=== PATIENT | female | born 1935 | race Caucasian/White ===

== ENCOUNTER 2016-09-26 05:20 | Inpatient (IN) | payer MEDICARE, MEDICAID ==
[2016-09-26] MEDS ORDERED: Albuterol/Ipratropium 3.0-0.5 MG/3 ML Neb Soln NEB ONE (05:35)
[2016-09-26] MEDS ORDERED: Albuterol/Ipratropium 3.0-0.5 MG/3 ML Neb Soln ONE (05:35)
[2016-09-26] MEDS ORDERED: Acetaminophen 325 MG Supp ONE (06:02)
[2016-09-26] MEDS ORDERED: Acetaminophen 325 MG Supp RECTAL ONE (06:02)
[2016-09-26] MEDS ORDERED: Levofloxacin/Dextrose 5%-Water 750 MG in Premix Bag 1 BAG IV ONE (06:20)
--- NOTE | 2016-09-26 06:58 | EDM.PDOC ---
ED HPI GENERAL MEDICAL PROBLEM - General Chief Complaint: Respiratory Problem Stated Complaint: SHORT OF BREATH Time Seen by Provider: 09/26/16 06:51 - History of Present Illness INITIAL COMMENTS - FREE TEXT/NARRATIVE: HISTORY AND PHYSICAL: History of present illness: Patient is a 81-year-old white female who presents from the half-way with fever shortness of breath cough and an advanced directive of DO NOT RESUSCITATE was no vomiting no diarrhea no chest pain patient's extremely poor story extensive past medical history. Patient was given albuterol ipratropium nebulizer prior to arrival Review of systems: As per history of present illness and below otherwise all systems reviewed and negative. Past medical history: As per history of present illness and as reviewed below otherwise noncontributory. Surgical history: As per history of present illness and as reviewed below otherwise noncontributory. Social history: No reported history of drug or alcohol abuse. Family history: As per history of present illness and as reviewed below otherwise noncontributory. Physical exam: HEENT: Atraumatic, normocephalic, pupils reactive, negative for conjunctival pallor or scleral icterus, mucous membranes moist, throat clear, neck supple, nontender, trachea midline. Lungs: Coarse breath sounds bilaterally scattered rhonchi wheezing and crackles , breath sounds equal bilaterally, chest nontender. Heart: S1S2, regular, negative for clicks, rubs, or JVD. Abdomen: Soft, nondistended, nontender. Negative for masses or hepatosplenomegaly. Negative for costovertebral tenderness. Pelvis: Stable nontender. Genitourinary: Deferred. Rectal: Deferred. Extremities: Atraumatic, negative for cords or calf pain. Neurovascular unremarkable. Neuro: Awake, follows commands moves all extremities limited grossly nonfocal exam Diagnostics: CBC CMP troponin BNP PT/INR lactic acid blood culture x2 chest x-ray UA urine culture and sensitivity Therapeutics: IV O2 monitor Levaquin 750 mg IV vancomycin 1 g IV Impression: #1 sepsis #2 pneumonia Definitive disposition and diagnosis as appropriate pending reevaluation and review of above. 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 - Related Data Allergies Allergy/AdvReac Type Severity Reaction Status Date / Time baclofen Allergy Other Verified 09/26/16 05:43 celecoxib [From Celebrex] Allergy Other Verified 09/26/16 05:43 propoxyphene Allergy Other Verified 09/26/16 05:43 sulfamethoxazole Allergy Other Verified 09/26/16 05:43 [From ] trimethoprim [From ] Allergy Other Verified 09/26/16 05:43 Home Meds: Home Meds Calcium Carbonate/Vitamin D3 [Calcium 600 + Vit D 400 Softgl] 1 cap PO BID 03/29 [History] Cholestyramine/Aspartame [Questran Light Powder] 4 gm PO DAILY 03/29/16 [History ] Cyanocobalamin (Vitamin B12) [Vitamin B12] 1,000 mcg PO DAILY 03/29/16 [History] Donepezil HCl [Aricept] 10 mg PO BEDTIME 03/29/16 [History] FLUoxetine [PROzac] 40 mg PO DAILY 03/29/16 [History] Folic Acid 1 mg PO BEDTIME 03/29/16 [History] Hydrocortisone [Hydrocortisone 2.5% Crm] 1 dose TD DAILY PRN 03/29/16 [History] Ibuprofen [Motrin] 200 mg PO Q6H PRN 03/29/16 [History] Levothyroxine [Synthroid] 50 mcg PO DAILY 03/29/16 [History] Lisinopril 20 mg PO DAILY 03/29/16 [History] Loratadine 10 mg PO DAILY PRN 03/29/16 [History] Mirtazapine [Remeron] 45 mg PO BEDTIME 03/29/16 [History] Multivitamin [Multivitamins] 1 cap PO DAILY 03/29/16 [History] Prednisone [IJD: predniSONE] 20 mg PO DAILY 03/29/16 [History] amLODIPine Besylate [Norvasc] 2.5 mg PO DAILY 03/29/16 [History] fentaNYL [Fentanyl] 1 patch TD Q72H 03/29/16 [History] traMADol [Ultram] 1 tab PO TID 03/29/16 [History] Albuterol Sulfate 2.5 mg INH Q6H PRN 09/26/16 [History] Past Medical History HEENT History: Reports: Impaired Vision Cardiovascular History: Reports: High Cholesterol, Hypertension Other Cardiovascular History: raynauds Gastrointestinal History: Reports: GERD 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: Musculoskeletal History: Reports: Arthritis, Fibromyalgia, Other (See Below) Other Musculoskeletal History: polymyalgia rheumatica, MS Neurological History: Reports: MS Psychiatric History: Reports: Dementia, Depression Endocrine/Metabolic History: Reports: Hypothyroidism Social & Family History - Family History Family Medical History: Noncontributory - Tobacco Use Smoking Status *Q: Unknown Ever Smoked - Caffeine Use Caffeine Use: Reports: None - Recreational Drug Use Recreational Drug Use: No ED ROS GENERAL - Review of Systems Review Of Systems: ROS reveals no pertinent complaints other than HPI. ED EXAM, GENERAL - Physical Exam Exam: See Below (See dictation) Course - Vital Signs Last Recorded V/S: Last Vital Signs Temp 36.3 C 09/26/16 06:49 Pulse 78 09/26/16 06:49 Resp 28 H 09/26/16 06:49 BP 120/65 09/26/16 06:49 Pulse Ox 92 L 09/26/16 06:49 - Orders/Labs/Meds Orders: Active Orders 24 hr Category Date Time Status EKG Documentation Completion [RC] STAT Care 09/26/16 05:35 Active RT Aerosol Therapy [RC] ASDIRECTED Care 09/26/16 05:35 Active Chest 1V Frontal [CR] Stat Exams 09/26/16 05:36 Taken CULTURE BLOOD [BC] Stat Lab 09/26/16 05:35 Received CULTURE BLOOD [BC] Stat Lab 09/26/16 05:48 Received Levofloxacin/Dextrose 5%-Water [Levaquin in D5W 750 MG/ Med 09/26/16 06:20 Active 150 ML] 750 mg Premix Bag 1 bag IV ONETIME Vancomycin [Vancocin] 1 gm Med 09/26/16 06:52 Ordered Sodium Chloride 0.9% [Normal Saline] 250 ml IV ONETIME Blood Culture x2 Reflex Set [OM.PC] Stat Oth 09/26/16 05:36 Ordered Medication Orders Levofloxacin/Dextrose 750 mg/ (Premix) 150 mls @ 100 mls/hr IV ONETIME ONE Stop: 09/26/16 07:49 Last Admin: 09/26/16 06:27 Dose: 100 mls/hr Labs: Laboratory Tests 09/26/16 09/26/16 09/26/16 Range/Units 05:25 05:25 05:25 WBC 17.83 H (4.0-11.0) K/uL RBC 4.61 (4.30-5.90) M/uL Hgb 14.0 (12.0-16.0) g/dL Hct 43.8 (36.0-46.0) % MCV 95.0 (80.0-98.0) fL MCH 30.4 (27.0-32.0) pg MCHC 32.0 (31.0-37.0) g/dL RDW Std Deviation 54.7 (28.0-62.0) fl RDW Coeff of Maricel 16 H (11.0-15.0) % Plt Count 261 (150-400) K/uL MPV 9.80 (7.40-12.00) fL Add Manual Diff YES Neutrophils % (Manual) 86 H (48.0-80.0) % Band Neutrophils % 3 % Lymphocytes % (Manual) 6 L (16.0-40.0) % Monocytes % (Manual) 4 (0.0-15.0) % Basophils % (Manual) 1 (0.0-1.5) % Nucleated RBC % 0.0 /100WBC Absolute Seg Neuts 15.3 Band Neutrophils # 0.5 Lymphocytes # (Manual) 1.1 Monocytes # (Manual) 0.7 Basophils # (Manual) 0 Nucleated RBCs # 0 K/uL INR (0.86-1.11) ABG pH (7.35-7.45) ABG pCO2 (35-45) mmHG ABG pO2 (75-100) mmHG ABG HCO3 (22-26) mEq/L ABG Total CO2 ABG Base Excess (-2.0-2.0) Lactate 3.6 H (0.20-2.00) mmol/L Sodium 140 (136-146) mmol/L Potassium 3.7 (3.5-5.1) mmol/L Chloride 106 (98-110) mmol/L Carbon Dioxide 20 L (21-31) mmol/L BUN 22 (6.0-23.0) mg/dL Creatinine 1.1 (0.6-1.5) mg/dL Est Cr Clr Drug Dosing 31.72 mL/min Estimated GFR (MDRD) 47.7 ml/min Glucose 163 H (60-110) mg/dL Calcium 9.7 (8.8-10.8) mg/dL Total Bilirubin 0.5 (0.1-1.5) mg/dL AST 28 (5-40) IU/L ALT 35 (8-54) IU/L Alkaline Phosphatase 85 (40-150) B-Natriuretic Peptide (<100) PG/ML Total Protein 7.3 (6.0-8.0) g/dL Albumin 4.3 (3.4-4.8) g/dL Globulin 3.0 (2.0-3.5) g/dL Albumin/Globulin Ratio 1.4 (1.3-2.8) Urine Color Urine Appearance Urine pH (5.0-8.0) Ur Specific [place] (1.001-1.035) Urine Protein (NEGATIVE) mg/dL Urine Glucose (UA) (NEGATIVE) mg/dL Urine Ketones (NEGATIVE) mg/dL Urine Occult Blood (NEGATIVE) Urine Nitrite (NEGATIVE) Urine Bilirubin (NEGATIVE) Urine Urobilinogen (<2.0) EU/dL Ur Leukocyte Esterase (NEGATIVE) Urine RBC (0-2/HPF) Urine WBC (0-5/HPF) Ur Epithelial Cells (NONE-FEW) Amorphous Sediment (NEGATIVE) Urine Bacteria (NEGATIVE) 09/26/16 09/26/16 09/26/16 Range/Units 05:25 05:25 06:05 WBC (4.0-11.0) K/uL RBC (4.30-5.90) M/uL Hgb (12.0-16.0) g/dL Hct (36.0-46.0) % MCV (80.0-98.0) fL MCH (27.0-32.0) pg MCHC (31.0-37.0) g/dL RDW Std Deviation (28.0-62.0) fl RDW Coeff of [place] (11.0-15.0) % Plt Count (150-400) K/uL MPV (7.40-12.00) fL Add Manual Diff Neutrophils % (Manual) (48.0-80.0) % Band Neutrophils % % Lymphocytes % (Manual) (16.0-40.0) % Monocytes % (Manual) (0.0-15.0) % Basophils % (Manual) (0.0-1.5) % Nucleated RBC % /100WBC Absolute Seg Neuts Band Neutrophils # Lymphocytes # (Manual) Monocytes # (Manual) Basophils # (Manual) Nucleated RBCs # K/uL INR 0.99 (0.86-1.11) ABG pH (7.35-7.45) ABG pCO2 (35-45) mmHG ABG pO2 (75-100) mmHG ABG HCO3 (22-26) mEq/L ABG Total CO2 ABG Base Excess (-2.0-2.0) Lactate (0.20-2.00) mmol/L Sodium (136-146) mmol/L Potassium (3.5-5.1) mmol/L Chloride (98-110) mmol/L Carbon Dioxide (21-31) mmol/L BUN (6.0-23.0) mg/dL Creatinine (0.6-1.5) mg/dL Est Cr Clr Drug Dosing mL/min Estimated GFR (MDRD) ml/min Glucose (60-110) mg/dL Calcium (8.8-10.8) mg/dL Total Bilirubin (0.1-1.5) mg/dL AST (5-40) IU/L ALT (8-54) IU/L Alkaline Phosphatase (40-150) B-Natriuretic Peptide 117 H (<100) PG/ML Total Protein (6.0-8.0) g/dL Albumin (3.4-4.8) g/dL Globulin (2.0-3.5) g/dL Albumin/Globulin Ratio (1.3-2.8) Urine Color YELLOW Urine Appearance CLEAR Urine pH 5.5 (5.0-8.0) Ur Specific [place] >= 1.030 (1.001-1.035) Urine Protein 30 (NEGATIVE) mg/dL Urine Glucose (UA) NEGATIVE (NEGATIVE) mg/dL Urine Ketones NEGATIVE (NEGATIVE) mg/dL Urine Occult Blood MODERATE (NEGATIVE) Urine Nitrite POSITIVE H (NEGATIVE) Urine Bilirubin NEGATIVE (NEGATIVE) Urine Urobilinogen 0.2 (<2.0) EU/dL Ur Leukocyte Esterase SMALL (NEGATIVE) Urine RBC 6-10 (0-2/HPF) Urine WBC 20-30 (0-5/HPF) Ur Epithelial Cells FEW (NONE-FEW) Amorphous Sediment LIGHT (NEGATIVE) Urine Bacteria 2+ H (NEGATIVE) 09/26/16 Range/Units 06:30 WBC (4.0-11.0) K/uL RBC (4.30-5.90) M/uL Hgb (12.0-16.0) g/dL Hct (36.0-46.0) % MCV (80.0-98.0) fL MCH (27.0-32.0) pg MCHC (31.0-37.0) g/dL RDW Std Deviation (28.0-62.0) fl RDW Coeff of [place] (11.0-15.0) % Plt Count (150-400) K/uL MPV (7.40-12.00) fL Add Manual Diff Neutrophils % (Manual) (48.0-80.0) % Band Neutrophils % % Lymphocytes % (Manual) (16.0-40.0) % Monocytes % (Manual) (0.0-15.0) % Basophils % (Manual) (0.0-1.5) % Nucleated RBC % /100WBC Absolute Seg Neuts Band Neutrophils # Lymphocytes # (Manual) Monocytes # (Manual) Basophils # (Manual) Nucleated RBCs # K/uL INR (0.86-1.11) ABG pH 7.410 (7.35-7.45) ABG pCO2 35 (35-45) mmHG ABG pO2 60 L (75-100) mmHG ABG HCO3 22 (22-26) mEq/L ABG Total CO2 19.9 ABG Base Excess -2.2 L (-2.0-2.0) Lactate (0.20-2.00) mmol/L Sodium (136-146) mmol/L Potassium (3.5-5.1) mmol/L Chloride (98-110) mmol/L Carbon Dioxide (21-31) mmol/L BUN (6.0-23.0) mg/dL Creatinine (0.6-1.5) mg/dL Est Cr Clr Drug Dosing mL/min Estimated GFR (MDRD) ml/min Glucose (60-110) mg/dL Calcium (8.8-10.8) mg/dL Total Bilirubin (0.1-1.5) mg/dL AST (5-40) IU/L ALT (8-54) IU/L Alkaline Phosphatase (40-150) B-Natriuretic Peptide (<100) PG/ML Total Protein (6.0-8.0) g/dL Albumin (3.4-4.8) g/dL Globulin (2.0-3.5) g/dL Albumin/Globulin Ratio (1.3-2.8) Urine Color Urine Appearance Urine pH (5.0-8.0) Ur Specific [place] (1.001-1.035) Urine Protein (NEGATIVE) mg/dL Urine Glucose (UA) (NEGATIVE) mg/dL Urine Ketones (NEGATIVE) mg/dL Urine Occult Blood (NEGATIVE) Urine Nitrite (NEGATIVE) Urine Bilirubin (NEGATIVE) Urine Urobilinogen (<2.0) EU/dL Ur Leukocyte Esterase (NEGATIVE) Urine RBC (0-2/HPF) Urine WBC (0-5/HPF) Ur Epithelial Cells (NONE-FEW) Amorphous Sediment (NEGATIVE) Urine Bacteria (NEGATIVE) Meds: Medications Generic Name Dose Route Start Last Admin Trade Name Freq PRN Reason Stop Dose Admin Levofloxacin/Dextrose 750 mg/ 150 mls @ 100 mls/hr 09/26/16 06:20 09/26/16 06 :27 Premix IV 09/26/16 07:49 100 mls/hr ONETIME ONE Administration Discontinued Medications Generic Name Dose Route Start Last Admin Trade Name Freq PRN Reason Stop Dose Admin Acetaminophen Confirm 09/26/16 06:02 09/26/16 06:05 Tylenol Administered 09/26/16 06:03 325 mg Dose Administration 325 mg .ROUTE .STK-MED ONE Acetaminophen 325 mg 09/26/16 06:02 09/26/16 06:24 Tylenol RECTAL 09/26/16 06:03 Not Given NOW ONE Albuterol/Ipratropium 3 ml 09/26/16 05:35 09/26/16 05:35 Duoneb 3.0-0.5 Mg/3 Ml NEB 09/26/16 05:36 3 ml ONETIME ONE Administration Albuterol/Ipratropium Confirm 09/26/16 05:35 09/26/16 06:15 Duoneb 3.0-0.5 Mg/3 Ml Administered 09/26/16 05:36 Not Given Dose 3 ml .ROUTE .STK-MED ONE Departure - Departure Time of Disposition: 06:57 Disposition: Admitted As Inpatient 66 Condition: serious Clinical Impression: Sepsis, Pneumonia, UTI (urinary tract infection) - Discharge Information Forms: ED Department Discharge - My Orders Last 24 Hours: My Active Orders 09/26/16 05:35 EKG Documentation Completion [RC] STAT RT Aerosol Therapy [RC] ASDIRECTED CULTURE BLOOD [BC] Stat 09/26/16 05:36 Chest 1V Frontal [CR] Stat Blood Culture x2 Reflex Set [OM.PC] Stat 09/26/16 05:48 CULTURE BLOOD [BC] Stat 09/26/16 06:20 Levofloxacin/Dextrose 5%-Water [Levaquin in D5W 750 MG/150 ML] 750 mg Premix Bag 1 bag IV ONETIME 09/26/16 06:52 Vancomycin [Vancocin] 1 gm Sodium Chloride 0.9% [Normal Saline] 250 ml IV ONETIME - Assessment/Plan Last 24 Hours: My Active Orders 09/26/16 05:35 EKG Documentation Completion [RC] STAT RT Aerosol Therapy [RC] ASDIRECTED CULTURE BLOOD [BC] Stat 09/26/16 05:36 Chest 1V Frontal [CR] Stat Blood Culture x2 Reflex Set [OM.PC] Stat 09/26/16 05:48 CULTURE BLOOD [BC] Stat 09/26/16 06:20 Levofloxacin/Dextrose 5%-Water [Levaquin in D5W 750 MG/150 ML] 750 mg Premix Bag 1 bag IV ONETIME 09/26/16 06:52 Vancomycin [Vancocin] 1 gm Sodium Chloride 0.9% [Normal Saline] 250 ml IV ONETIME
[2016-09-26] MEDS ORDERED: Sodium Chloride 0.9% 1,000 ML IV SCH ×2 (07:15→08:00)
[2016-09-26] MEDS: Sodium Chloride 0.9% 1,000 ML IV SCH ×2 (08:33→17:07)
[2016-09-26] MEDS: Heparin Sodium 5,000 Units/ML Vial SUBCUT SCH ×2 (08:39→14:59)
[2016-09-26] MEDS: Piperacillin/Tazobactam 3.375 GM in Sodium Chloride 0.9% 50 ML IV SCH ×3 (08:39→20:49)
--- NOTE | 2016-09-26 10:03 | PCM.HP ---
H&P History of Present Illness - General Date of Service: 09/26/16 Admit Problem/Dx: Admission Diagnosis/Problem Admission Diagnosis/Problem Pneumonia Source of Information: Old Records History Limitations: Reports: Altered Mental Status - History of Present Illness Initial Comments - Free Text/Narative: The patient is an 81-year-old lady who is presented to the emergency department out of concern for pneumonia, urinary tract infection and alteration in her mental status. Information has been obtained primarily from the emergency room physician and previous records. The patient is nonverbal and does not follow commands. She is not able to participate in a meaningful way with her history and physical. Apparently the patient had been ill for the past several days and has gotten worse to the point that she was admitted to the emergency department. Onset of Symptoms: Reports: Unknown/Unsure Location: Reports: Generalized Improves with: Reports: None Worsens with: Reports: None Associated Symptoms: Reports: No Other Symptoms - Related Data Allergies/Adverse Reactions: Allergies Allergy/AdvReac Type Severity Reaction Status Date / Time baclofen Allergy Other Verified 09/26/16 05:43 celecoxib [From Celebrex] Allergy Other Verified 09/26/16 05:43 propoxyphene Allergy Other Verified 09/26/16 05:43 sulfamethoxazole Allergy Other Verified 09/26/16 05:43 [From Septra] trimethoprim [From Septra] Allergy Other Verified 09/26/16 05:43 Home Medications: Home Meds Calcium Carbonate/Vitamin D3 [Calcium 600 + Vit D 400 Softgl] 1 cap PO BID 03/29 [History] Cholestyramine/Aspartame [Questran Light Powder] 4 gm PO DAILY 03/29/16 [History ] Cyanocobalamin (Vitamin B12) [Vitamin B12] 1,000 mcg PO DAILY 03/29/16 [History] Donepezil HCl [Aricept] 10 mg PO BEDTIME 03/29/16 [History] FLUoxetine [PROzac] 40 mg PO DAILY 03/29/16 [History] Folic Acid 1 mg PO BEDTIME 03/29/16 [History] Hydrocortisone [Hydrocortisone 2.5% Crm] 1 dose TD DAILY PRN 03/29/16 [History] Ibuprofen [Motrin] 200 mg PO Q6H PRN 03/29/16 [History] Levothyroxine [Synthroid] 50 mcg PO DAILY 03/29/16 [History] Lisinopril 20 mg PO DAILY 03/29/16 [History] Loratadine 10 mg PO DAILY PRN 03/29/16 [History] Mirtazapine [Remeron] 45 mg PO BEDTIME 03/29/16 [History] Multivitamin [Multivitamins] 1 cap PO DAILY 03/29/16 [History] Prednisone [IJD: predniSONE] 20 mg PO DAILY 03/29/16 [History] amLODIPine Besylate [Norvasc] 2.5 mg PO DAILY 03/29/16 [History] fentaNYL [Fentanyl] 1 patch TD Q72H 03/29/16 [History] traMADol [Ultram] 1 tab PO TID 03/29/16 [History] Albuterol Sulfate 2.5 mg INH Q6H PRN 09/26/16 [History] Past Medical History HEENT History: Reports: Impaired Vision Cardiovascular History: Reports: High Cholesterol, Hypertension Other Cardiovascular History: raynauds Gastrointestinal History: Reports: GERD Genitourinary History: Reports: UTI, 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: Musculoskeletal History: Reports: Arthritis, Fibromyalgia, Other (See Below) Other Musculoskeletal History: polymyalgia rheumatica, MS Neurological History: Reports: MS Psychiatric History: Reports: Dementia, Depression Endocrine/Metabolic History: Reports: Hypothyroidism Social & Family History - Family History Family Medical History: Noncontributory - Tobacco Use Smoking Status *Q: Never Smoker - Caffeine Use Caffeine Use: Reports: Coffee - Recreational Drug Use Recreational Drug Use: No - Living Situation & Occupation Living situation: Reports: Extended Care Facility H&P Review of Systems - Review of Systems: Review Of Systems: Unable To Obtain Exam - Exam Exam: See Below - Vital Signs Vital Signs: Last Vital Signs Temp 36.3 C 09/26/16 07:45 Pulse 111 H 09/26/16 08:25 Resp 16 09/26/16 08:25 BP 110/64 09/26/16 08:25 Pulse Ox 92 L 09/26/16 08:25 Weight: 70.8 kg - Exam Quality Assessment: No: Supplemental Oxygen General: Cooperative. No: Alert, Oriented HEENT: Conjunctiva Clear, EACs Clear. No: Mucosa Moist & [place] (oropharynx dry) Neck: Supple, Trachea Midline Lungs: Rales (bi-basilar) Cardiovascular: Tachycardia Abdomen: Soft (no reaction), Hypoactive Bowel Sounds Back Exam: Decreased Range of Motion (mobility impaired) Extremities: Normal Inspection Skin: Warm Neurological: No: Normal Gait Neuro Extensive - Mental Status: No: Alert (nonverbal), Oriented x3, Nl Response to Commands - Patient Data Lab Results last 24 hrs: Laboratory Results - last 24 hr 09/26/16 Range/Units 09:43 Lactate 6.1 H (0.20-2.00) mmol/L Result Diagrams: 09/26/16 05:25 09/26/16 05:25 *Q Meaningful Use (ADM) - VTE *Q VTE Criteria *Q: VTE Pharmacological Contraindications *Q: Cerebral Hemorrhag Infarc - VTE Risk Assess *Q Each Risk Factor Represents 1 Point: Sepsis, Less than 1 Month Total Score 1 Point Risk Factors: 1 Each Risk Factor Represents 3 Points: Age 75 Years or Greater Total Score 3 Point Risk Factors: 3 - Stroke *Q Stroke Criteria *Q: - AMI *Q AMI Criteria *Q: - Problem List (1) Sepsis SNOMED Code(s): 49405137 ICD Code: A41.9 - SEPSIS, UNSPECIFIED ORGANISM Status: Acute Priority: High Current Visit: Yes Problem Details: likely urine source of sepsis Qualifiers: Sepsis type: sepsis due to unspecified organism Qualified Code(s): A41.9 - Sepsis, unspecified organism (2) Lactic acid acidosis SNOMED Code(s): 15830653 ICD Code: E87.2 - ACIDOSIS Status: Acute Priority: High Current Visit: Yes (3) Leukocytosis (leucocytosis) SNOMED Code(s): 387935418, 426258916 ICD Code: D72.829 - ELEVATED WHITE BLOOD CELL COUNT, UNSPECIFIED Status: Acute Priority: High Current Visit: Yes (4) Tachycardia SNOMED Code(s): 9303952 ICD Code: R00.0 - TACHYCARDIA, UNSPECIFIED Status: Acute Priority: High Current Visit: Yes (5) Mobility impaired SNOMED Code(s): 88937061 ICD Code: Z74.09 - OTHER REDUCED MOBILITY Status: Acute Priority: High Current Visit: Yes (6) Multiple sclerosis SNOMED Code(s): 60138216 ICD Code: G35 - MULTIPLE SCLEROSIS Status: Acute Current Visit: Yes (7) Altered mental status, unspecified SNOMED Code(s): 690732817 ICD Code: R41.82 - ALTERED MENTAL STATUS, UNSPECIFIED Status: Chronic Priority: Medium Current Visit: Yes (8) UTI (urinary tract infection) SNOMED Code(s): 22742173 ICD Code: N39.0 - URINARY TRACT INFECTION, SITE NOT SPECIFIED Status: Acute Priority: High Current Visit: Yes Qualifiers: Encounter type: initial encounter Problem List Initiated/Reviewed/Updated: Yes Orders Last 24hrs: Active Orders 24 hr Category Date Time Status Bedrest Bedside Commode [RC] ASDIRECTED Care 09/26/16 07:45 Active Oxygen Therapy [RC] PRN Care 09/26/16 07:45 Active Urinary Catheter Assessment [RC] ASDIRECTED Care 09/26/16 07:45 Active VTE/DVT Education [RC] PER UNIT ROUTINE Care 09/26/16 07:45 Active Vital Signs [RC] Q4H Care 09/26/16 07:45 Active Mechanical Soft Diet [DIET] Diet 09/26/16 Lunch Active CULTURE URINE [RM] Routine Lab 09/26/16 06:05 Received LACTIC ACID,WHOLE BLOOD [BG] Routine Lab 09/26/16 15:30 Ordered Heparin Sodium Med 09/26/16 07:45 Active 5,000 units SUBCUT Q8H Piperacillin/Tazobactam [Piperacil-Tazobact] 3.375 gm Med 09/26/16 08:00 Active Sodium Chloride 0.9% [Normal Saline] 50 ml IV Q6H Sodium Chloride 0.9% [Normal Saline] 1,000 ml Med 09/26/16 07:15 Active IV ASDIRECTED Sodium Chloride 0.9% [Normal Saline] 1,000 ml Med 09/26/16 07:45 Active IV ASDIRECTED Resuscitation Status Routine Resus Stat 09/26/16 07:45 Ordered Medication Orders Heparin Sodium (Porcine) (Heparin Sodium) 5,000 units SUBCUT Q8H [facility] Last Admin: 09/26/16 08:39 Dose: 5,000 units Sodium Chloride (Normal Saline) 1,000 mls @ 999 mls/hr IV ASDIRECTED [facility] Last Admin: 09/26/16 07:45 Dose: 999 mls/hr Piperacillin Sod/Tazobactam (Sod 3.375 gm/ Sodium Chloride) 50 mls @ 100 mls/ hr IV Q6H [facility] Last Admin: 09/26/16 08:39 Dose: 100 mls/hr Sodium Chloride (Normal Saline) 1,000 mls @ 100 mls/hr IV ASDIRECTED [facility] Last Admin: 09/26/16 08:33 Dose: 100 mls/hr Assessment/Plan Comment:: The patient is an 81-year-old lady who has been admitted as an inpatient primarily for sepsis. She has a market elevation of her lactic acid along with leukocytosis and tachycardia. The [facility] and she does have alteration in her mental status. I believe this is likely urinary source. The patient had been dosed with Levaquin in the emergency department and also she has been started on Zosyn. The patient will have aggressive IV fluid resuscitation at the rate of 125 mL per hour. The patient is also in a DO NOT RESUSCITATE/DO NOT INTUBATE category but she will be treated for her likely urosepsis. The patient also has significantly reduced mobility issues secondary to her multiple sclerosis. She was kept on Lovenox for DVT prophylaxis. The patient will also be kept on her regular diet as tolerated depending upon the patient's mental status. I've also ordered a comprehensive metabolic panel and CBC for the morning. I've also ordered a magnesium and phosphorus. The patient will be placed on sepsis protocol along with repeat lactic acids every 6 hours. The patient's prognosis is guarded.
[2016-09-26] MEDS: Morphine 2 MG/ML Syringe IVPUSH PRN ×3 (13:03→20:49)
[2016-09-26] MEDS ORDERED: Non-Formulary Medication 1 Each (Fentanyl [Fentanyl] 12 MCG) TD SCH (13:45)
--- NOTE | 2016-09-26 14:52 | CR ---
EXAM DATE: 09/26/16 PATIENT'S AGE: 81 Patient: AWA CONTRERAS Facility: [place], [place] Site . Site : 1935 Study: XRay Chest [id number] 5:56:50 AM Ordering Physician: Doctor Zamora Final Report: INDICATION: sob TECHNIQUE: Chest 1 view. COMPARISON: 03/29/16 FINDINGS: Cardiovascular and mediastinum: Heart size and vasculature are normal in caliber and appearance. Mediastinum is within normal limits. Lungs and pleural space: Lungs are clear. No sign of infiltrate or mass. No sign of pleural effusion. No pneumothorax. Bones and soft tissues: No significant findings. IMPRESSION: Unremarkable chest. Dictated by: Vasile Ugarte MD @ 09/26/2016 06:00:18 (Electronic Signature) Report Signed by Proxy. ELYSSA
[2016-09-26] MEDS: Albuterol/Ipratropium 3.0-0.5 MG/3 ML Neb Soln NEB PRN ×2 (17:31→20:49)
[2016-09-26] MEDS: Folic Acid 1 MG Tab PO SCH (20:48)
[2016-09-26] MEDS: Mirtazapine 15 MG Tab PO SCH (20:48)
[2016-09-26] MEDS: Donepezil 10 MG Tab PO SCH (20:49)
[2016-09-27] MEDS: Heparin Sodium 5,000 Units/ML Vial SUBCUT SCH ×4 (00:23→23:42)
[2016-09-27] MEDS: Albuterol/Ipratropium 3.0-0.5 MG/3 ML Neb Soln NEB PRN ×2 (01:35→05:48)
[2016-09-27] MEDS: Piperacillin/Tazobactam 3.375 GM in Sodium Chloride 0.9% 50 ML IV SCH ×4 (01:35→19:58)
[2016-09-27] MEDS: Morphine 2 MG/ML Syringe IVPUSH PRN ×4 (01:36→13:34)
[2016-09-27] MEDS: Sodium Chloride 0.9% 1,000 ML IV SCH (01:37)
[2016-09-27] MEDS: fentaNYL 12 MCG/HR Transdermal Patch TRDERM SCH (04:38)
[2016-09-27 04:58] LABS: CHLORIDE,CL 114 mmol/L (98-110); SODIUM,NA 144 mmol/L (136-146)
[2016-09-27] MEDS: predniSONE 20 MG Tab PO SCH (08:08)
[2016-09-27] MEDS: Levothyroxine 50 MCG Tab PO SCH (08:09)
[2016-09-27] MEDS: FLUoxetine 20 MG Cap PO SCH (08:09)
--- NOTE | 2016-09-27 08:17 | PCM.PN ---
- General Info Date of Service: 09/27/16 Admission Dx/Problem (Free Text): Admission Diagnosis/Problem Admission Diagnosis/Problem UTI, Sepsis Subjective Update: Spoke with Son, GAMALIEL Ramírez, who feels she looks a lot better than yesterday. But is concerned about her breathing, sounds more congested. She normally has moist cough secondary to partial paralysis of throat due to MS. She is nonverbal , but he knows her cues, he notes intermittent pain, but for the most part her pain is controlled well with Fentanyl patch. Functional Status: Reports: pain controlled, tolerating diet. Denies: ambulating - Review of Systems Systems Review Comment:: Unable to obtain ROS from patient due to non-verbal status. spoke with son. - Patient Data Vitals - most recent: Last Vital Signs Temp 98.7 F 09/27/16 08:00 Pulse 90 09/27/16 08:00 Resp 18 09/27/16 08:00 BP 104/51 L 09/27/16 08:10 Pulse Ox 90 L 09/27/16 08:00 Weight - most recent: 70.5 kg I&O - last 24 hours: Intake & Output 09/26/16 09/27/16 09/27/16 22:59 06:59 14:59 Intake Total 475 1803 Output Total 375 520 Balance 100 1283 Lab Results last 24 hrs: Laboratory Results - last 24 hr 09/26/16 09/26/16 09/26/16 Range/Units 09:43 15:09 20:16 WBC (4.0-11.0) K/uL RBC (4.30-5.90) M/uL Hgb (12.0-16.0) g/dL Hct (36.0-46.0) % MCV (80.0-98.0) fL MCH (27.0-32.0) pg MCHC (31.0-37.0) g/dL RDW Std Deviation (28.0-62.0) fl RDW Coeff of Maricel (11.0-15.0) % Plt Count (150-400) K/uL MPV (7.40-12.00) fL Neut % (Auto) (48.0-80.0) % Lymph % (Auto) (16.0-40.0) % [place] % (Auto) (0.0-15.0) % Eos % (Auto) (0.0-7.0) % Baso % (Auto) (0.0-1.5) % Neut # (Auto) (1.4-5.7) K/uL Lymph # (Auto) (0.6-2.4) K/uL [place] # (Auto) (0.0-0.8) K/uL Eos # (Auto) (0.0-0.7) K/uL Baso # (Auto) (0.0-0.1) K/uL Nucleated RBC % /100WBC Nucleated RBCs # K/uL Lactate 6.1 H 2.8 H 1.1 (0.20-2.00) mmol/L Sodium (136-146) mmol/L Potassium (3.5-5.1) mmol/L Chloride (98-110) mmol/L Carbon Dioxide (21-31) mmol/L BUN (6.0-23.0) mg/dL Creatinine (0.6-1.5) mg/dL Est Cr Clr Drug Dosing mL/min Estimated GFR (MDRD) ml/min Glucose (60-110) mg/dL Calcium (8.8-10.8) mg/dL 09/27/16 09/27/16 Range/Units 04:11 04:11 WBC 9.02 (4.0-11.0) K/uL RBC 3.54 L (4.30-5.90) M/uL Hgb 10.6 L (12.0-16.0) g/dL Hct 33.7 L (36.0-46.0) % MCV 95.2 (80.0-98.0) fL MCH 29.9 (27.0-32.0) pg MCHC 31.5 (31.0-37.0) g/dL RDW Std Deviation 54.6 (28.0-62.0) fl RDW Coeff of Maricel 16 H (11.0-15.0) % Plt Count 191 (150-400) K/uL MPV 9.80 (7.40-12.00) fL Neut % (Auto) 76.3 (48.0-80.0) % Lymph % (Auto) 15.1 L (16.0-40.0) % [place] % (Auto) 8.1 (0.0-15.0) % Eos % (Auto) 0.3 (0.0-7.0) % Baso % (Auto) 0.2 (0.0-1.5) % Neut # (Auto) 6.9 H (1.4-5.7) K/uL Lymph # (Auto) 1.4 (0.6-2.4) K/uL [place] # (Auto) 0.7 (0.0-0.8) K/uL Eos # (Auto) 0.0 (0.0-0.7) K/uL Baso # (Auto) 0.0 (0.0-0.1) K/uL Nucleated RBC % 0.0 /100WBC Nucleated RBCs # 0 K/uL Lactate (0.20-2.00) mmol/L Sodium 144 (136-146) mmol/L Potassium 4.0 (3.5-5.1) mmol/L Chloride 114 H (98-110) mmol/L Carbon Dioxide 19 L (21-31) mmol/L BUN 15 (6.0-23.0) mg/dL Creatinine 0.8 (0.6-1.5) mg/dL Est Cr Clr Drug Dosing 43.24 mL/min Estimated GFR (MDRD) > 60.0 ml/min Glucose 79 (60-110) mg/dL Calcium 7.8 L (8.8-10.8) mg/dL Med Orders - Current: Current Medications Albuterol/Ipratropium (Duoneb 3.0-0.5 Mg/3 Ml) 3 ml NEB Q4HRRT PRN PRN Reason: SOB/wheezing Last Admin: 09/27/16 05:48 Dose: 3 ml Donepezil HCl (Aricept) 10 mg PO BEDTIME [facility] Last Admin: 09/26/16 20:49 Dose: 10 mg Fentanyl (Duragesic) 12 mcg TRDERM Q72H [facility] Last Admin: 09/27/16 04:38 Dose: 12 mcg Fluoxetine HCl (Prozac) 40 mg PO DAILY [facility] Last Admin: 09/27/16 08:09 Dose: 40 mg Folic Acid (Folic Acid) 1 mg PO BEDTIME [facility] Last Admin: 09/26/16 20:48 Dose: 1 mg Heparin Sodium (Porcine) (Heparin Sodium) 5,000 units SUBCUT Q8H [facility] Last Admin: 09/27/16 08:05 Dose: 5,000 units Piperacillin Sod/Tazobactam (Sod 3.375 gm/ Sodium Chloride) 50 mls @ 100 mls/ hr IV Q6H [facility] Last Admin: 09/27/16 08:08 Dose: 100 mls/hr Sodium Chloride (Normal Saline) 1,000 mls @ 125 mls/hr IV ASDIRECTED [facility] Last Admin: 09/27/16 01:37 Dose: 125 mls/hr Levothyroxine Sodium (Synthroid) 50 mcg PO ACBREAKFAST [facility] Last Admin: 09/27/16 08:09 Dose: 50 mcg Mirtazapine (Remeron) 45 mg PO BEDTIME [facility] Last Admin: 09/26/16 20:48 Dose: 45 mg Morphine Sulfate (Morphine) 2 mg IVPUSH Q2H PRN PRN Reason: Pain Last Admin: 09/27/16 06:12 Dose: 2 mg Prednisone (Prednisone) 20 mg PO DAILY [facility] Last Admin: 09/27/16 08:08 Dose: 20 mg Discontinued Medications Acetaminophen (Tylenol) Confirm Administered Dose 325 mg .ROUTE .STK-MED ONE Stop: 09/26/16 06:03 Last Admin: 09/26/16 06:05 Dose: 325 mg Acetaminophen (Tylenol) 325 mg RECTAL NOW ONE Stop: 09/26/16 06:03 Last Admin: 09/26/16 06:24 Dose: Not Given Albuterol/Ipratropium (Duoneb 3.0-0.5 Mg/3 Ml) 3 ml NEB ONETIME ONE Stop: 09/26/16 05:36 Last Admin: 09/26/16 05:35 Dose: 3 ml Albuterol/Ipratropium (Duoneb 3.0-0.5 Mg/3 Ml) Confirm Administered Dose 3 ml .ROUTE .STK-MED ONE Stop: 09/26/16 05:36 Last Admin: 09/26/16 06:15 Dose: Not Given Amlodipine Besylate (Norvasc) 2.5 mg PO DAILY [facility] Last Admin: 09/27/16 08:10 Dose: 2.5 mg Levofloxacin/Dextrose 750 mg/ (Premix) 150 mls @ 100 mls/hr IV ONETIME ONE Stop: 09/26/16 07:49 Last Admin: 09/26/16 06:27 Dose: 100 mls/hr Vancomycin HCl 1 gm/ Sodium (Chloride) 250 mls @ 166 mls/hr IV ONETIME ONE Stop: 09/26/16 08:22 Last Admin: 09/26/16 06:58 Dose: 166 mls/hr Sodium Chloride (Normal Saline) 1,000 mls @ 999 mls/hr IV ASDIRECTED [facility] Last Admin: 09/26/16 07:45 Dose: 999 mls/hr Sodium Chloride (Normal Saline) 1,000 mls @ 125 mls/hr IV ASDIRECTED [facility] Lisinopril (Prinivil) 20 mg PO DAILY [facility] Non-Formulary Medication (Fentanyl [Fentanyl]) 12 mcg TD Q72H [facility] Last Admin: 09/26/16 13:49 Dose: Not Given - Exam Quality Assessment: supplemental oxygen, urine catheter, DVT prophylaxis General: alert, cooperative, mild distress (dyspnea) HEENT: Pupils equal, Mucous membr. moist/pink Neck: supple. No: lymphadenopathy Lungs: Crackles (upper bases, likely bronchial in origin. Does have fine crackles to bases bilaterally. ), Wheezing. No: Normal respiratory effort Cardiovascular: Regular Rate, Regular Rhythm, No Murmurs Abdomen: bowel sounds present, soft, no tenderness, no distension Extremities: no edema, normal pulses, no calf tenderness Neurological: no new focal deficit Psy/Mental Status: alert, normal affect, normal mood - Problem List & Annotations (1) UTI (urinary tract infection) SNOMED Code(s): 15825494 Code(s): N39.0 - URINARY TRACT INFECTION, SITE NOT SPECIFIED Status: Acute Priority: High Current Visit: Yes Qualifiers: Encounter type: initial encounter (2) Sepsis SNOMED Code(s): 43928885 Code(s): A41.9 - SEPSIS, UNSPECIFIED ORGANISM Status: Resolved Priority: High Current Visit: Yes Qualifiers: Sepsis type: sepsis due to unspecified organism Qualified Code(s): A41.9 - Sepsis, unspecified organism Annotation/Comment:: likely urine source of sepsis (3) Fibromyalgia SNOMED Code(s): 664212623 Code(s): M79.7 - FIBROMYALGIA Status: Chronic Current Visit: Yes (4) Multiple sclerosis SNOMED Code(s): 94431288 Code(s): G35 - MULTIPLE SCLEROSIS Status: Chronic Current Visit: Yes (5) HTN (hypertension) SNOMED Code(s): 42236370 Code(s): I10 - ESSENTIAL (PRIMARY) HYPERTENSION Status: Chronic Current Visit: Yes Qualifiers: Hypertension type: essential hypertension Qualified Code(s): I10 - Essential (primary) hypertension (6) COPD (chronic obstructive pulmonary disease) SNOMED Code(s): 36506914 Code(s): J44.9 - CHRONIC OBSTRUCTIVE PULMONARY DISEASE, UNSPECIFIED Status : Acute Current Visit: Yes Qualifiers: COPD type: chronic bronchitis Chronic bronchitis type: mixed simple and mucopurulent Qualified Code(s): J41.8 - Mixed simple and mucopurulent chronic bronchitis (7) Hypothyroid SNOMED Code(s): 48400623 Code(s): E03.9 - HYPOTHYROIDISM, UNSPECIFIED Status: Chronic Current Visit: Yes Qualifiers: Hypothyroidism type: unspecified Qualified Code(s): E03.9 - Hypothyroidism , unspecified - Problem List Review Problem List Initiated/Reviewed/Updated: Yes - My Orders Last 24 Hours: My Active Orders 09/26/16 08:00 Piperacillin/Tazobactam [Piperacil-Tazobact] 3.375 gm Sodium Chloride 0.9% [ Normal Saline] 50 ml IV Q6H - Plan Plan:: This 81 year old female admitted with urosepsis 1. UTI: Sepsis resolved. Lactic acid normalized with fluid resuscitation. Continue Zosyn IV today. UC pending. BC 05/03 returned with gram positive cocci in clusters, consider contaminate?? Will monitor. Showing improvement on current regimen. Leukocytosis resolved. Duonebs scheduled and Oxygen as needed, may wean as possible to keep sats 90%. 2. Dypsnea/congestion: Will obtain CXR today. Have ST evaluate and treat for swallowing concerns. 3. HTN: Holding medications, secondary to lower BP and recent sepsis. Will add slowly back. 4. MS/Fibromyalgia: Continue Fentanyl patch and Tramadol for chronic pain. VTE prophylaxis: Heparin Dispo: 2-4 days pending improvement.
[2016-09-27] MEDS ORDERED: Lisinopril 10 MG Tab PO SCH (09:00)
[2016-09-27] MEDS ORDERED: amLODIPine 2.5 MG Tab PO SCH (09:00)
[2016-09-27] MEDS ORDERED: traMADol 50 MG Tab PO PRN (10:17)
--- NOTE | 2016-09-27 10:47 | CR ---
EXAMINATION: Portable chest radiograph. HISTORY: Congestion. FINDINGS: The trachea is midline. The cardiomediastinal silhouette is within normal limits. There is right per ihilar and left basilar atelectasis. No pleural effusion or pneumothorax Osseous structures appear osteopenic. IMPRESSION: Grossly stable chest radiograph.
[2016-09-27] MEDS: Albuterol/Ipratropium 3.0-0.5 MG/3 ML Neb Soln NEB SCH ×3 (13:14→21:14)
[2016-09-27] MEDS: Folic Acid 1 MG Tab PO SCH (20:07)
[2016-09-27] MEDS: Donepezil 10 MG Tab PO SCH (20:07)
[2016-09-27] MEDS: Mirtazapine 15 MG Tab PO SCH (20:07)
[2016-09-28] MEDS: Albuterol/Ipratropium 3.0-0.5 MG/3 ML Neb Soln NEB SCH ×6 (02:00→21:04)
[2016-09-28] MEDS: Piperacillin/Tazobactam 3.375 GM in Sodium Chloride 0.9% 50 ML IV SCH ×4 (02:04→20:07)
[2016-09-28 05:00] LABS: CHLORIDE,CL 111 mmol/L (98-110); SODIUM,NA 144 mmol/L (136-146)
[2016-09-28] MEDS: Levothyroxine 50 MCG Tab PO SCH (06:47)
[2016-09-28] MEDS: Heparin Sodium 5,000 Units/ML Vial SUBCUT SCH ×3 (06:47→23:36)
--- NOTE | 2016-09-28 08:06 | PCM.PN ---
- General Info Date of Service: 09/28/16 Admission Dx/Problem (Free Text): Admission Diagnosis/Problem Admission Diagnosis/Problem UTI, Sepsis Subjective Update: Patient sleeping this am, does awaken slightly to question, but does not respond. Unable to obtain ROS. No nursing concerns. No family at bedside this am , will speak with grandson when available. - Patient Data Vitals - most recent: Last Vital Signs Temp 97.6 F 09/28/16 04:00 Pulse 96 09/28/16 04:00 Resp 20 09/28/16 05:00 BP 148/78 H 09/28/16 04:00 Pulse Ox 91 L 09/28/16 05:00 Weight - most recent: 70.5 kg I&O - last 24 hours: Intake & Output 09/27/16 09/28/16 09/28/16 22:59 06:59 14:59 Intake Total 270 290 Output Total 400 400 Balance -130 -110 Lab Results last 24 hrs: Laboratory Results - last 24 hr 09/28/16 09/28/16 Range/Units 04:25 04:25 WBC 9.27 (4.0-11.0) K/uL RBC 3.63 L (4.30-5.90) M/uL Hgb 10.8 L (12.0-16.0) g/dL Hct 34.4 L (36.0-46.0) % MCV 94.8 (80.0-98.0) fL MCH 29.8 (27.0-32.0) pg MCHC 31.4 (31.0-37.0) g/dL RDW Std Deviation 53.8 (28.0-62.0) fl RDW Coeff of Maricel 16 H (11.0-15.0) % Plt Count 224 (150-400) K/uL MPV 9.50 (7.40-12.00) fL Neut % (Auto) 74.5 (48.0-80.0) % Lymph % (Auto) 17.2 (16.0-40.0) % [place] % (Auto) 7.7 (0.0-15.0) % Eos % (Auto) 0.4 (0.0-7.0) % Baso % (Auto) 0.2 (0.0-1.5) % Neut # (Auto) 6.9 H (1.4-5.7) K/uL Lymph # (Auto) 1.6 (0.6-2.4) K/uL [place] # (Auto) 0.7 (0.0-0.8) K/uL Eos # (Auto) 0.0 (0.0-0.7) K/uL Baso # (Auto) 0.0 (0.0-0.1) K/uL Nucleated RBC % 0.0 /100WBC Nucleated RBCs # 0 K/uL Sodium 144 (136-146) mmol/L Potassium 3.6 (3.5-5.1) mmol/L Chloride 111 H (98-110) mmol/L Carbon Dioxide 21 (21-31) mmol/L BUN 10 (6.0-23.0) mg/dL Creatinine 0.8 (0.6-1.5) mg/dL Est Cr Clr Drug Dosing 43.24 mL/min Estimated GFR (MDRD) > 60.0 ml/min Glucose 86 (60-110) mg/dL Calcium 8.2 L (8.8-10.8) mg/dL Med Orders - Current: Current Medications Albuterol/Ipratropium (Duoneb 3.0-0.5 Mg/3 Ml) 3 ml NEB Q4HRRT [facility] Last Admin: 09/28/16 05:00 Dose: 3 ml Donepezil HCl (Aricept) 10 mg PO BEDTIME [facility] Last Admin: 09/27/16 20:07 Dose: 10 mg Fentanyl (Duragesic) 12 mcg TRDERM Q72H [facility] Last Admin: 09/27/16 04:38 Dose: 12 mcg Fluoxetine HCl (Prozac) 40 mg PO DAILY [facility] Last Admin: 09/27/16 08:09 Dose: 40 mg Folic Acid (Folic Acid) 1 mg PO BEDTIME [facility] Last Admin: 09/27/16 20:07 Dose: 1 mg Heparin Sodium (Porcine) (Heparin Sodium) 5,000 units SUBCUT Q8H [facility] Last Admin: 09/28/16 06:47 Dose: 5,000 units Piperacillin Sod/Tazobactam (Sod 3.375 gm/ Sodium Chloride) 50 mls @ 100 mls/ hr IV Q6H [facility] Last Infusion: 09/28/16 02:35 Dose: Infused Levothyroxine Sodium (Synthroid) 50 mcg PO ACBREAKFAST [facility] Last Admin: 09/28/16 06:47 Dose: 50 mcg Mirtazapine (Remeron) 45 mg PO BEDTIME [facility] Last Admin: 09/27/16 20:07 Dose: 45 mg Morphine Sulfate (Morphine) 2 mg IVPUSH Q2H PRN PRN Reason: Pain Last Admin: 09/27/16 13:34 Dose: 2 mg Prednisone (Prednisone) 20 mg PO DAILY [facility] Last Admin: 09/27/16 08:08 Dose: 20 mg Tramadol HCl (Ultram) 50 mg PO TID PRN PRN Reason: Pain Last Admin: 09/28/16 04:48 Dose: 50 mg Discontinued Medications Acetaminophen (Tylenol) Confirm Administered Dose 325 mg .ROUTE .STK-MED ONE Stop: 09/26/16 06:03 Last Admin: 09/26/16 06:05 Dose: 325 mg Acetaminophen (Tylenol) 325 mg RECTAL NOW ONE Stop: 09/26/16 06:03 Last Admin: 09/26/16 06:24 Dose: Not Given Albuterol/Ipratropium (Duoneb 3.0-0.5 Mg/3 Ml) 3 ml NEB ONETIME ONE Stop: 09/26/16 05:36 Last Admin: 09/26/16 05:35 Dose: 3 ml Albuterol/Ipratropium (Duoneb 3.0-0.5 Mg/3 Ml) Confirm Administered Dose 3 ml .ROUTE .STK-MED ONE Stop: 09/26/16 05:36 Last Admin: 09/26/16 06:15 Dose: Not Given Albuterol/Ipratropium (Duoneb 3.0-0.5 Mg/3 Ml) 3 ml NEB Q4HRRT PRN PRN Reason: SOB/wheezing Last Admin: 09/27/16 05:48 Dose: 3 ml Amlodipine Besylate (Norvasc) 2.5 mg PO DAILY [facility] Last Admin: 09/27/16 08:10 Dose: 2.5 mg Levofloxacin/Dextrose 750 mg/ (Premix) 150 mls @ 100 mls/hr IV ONETIME ONE Stop: 09/26/16 07:49 Last Admin: 09/26/16 06:27 Dose: 100 mls/hr Vancomycin HCl 1 gm/ Sodium (Chloride) 250 mls @ 166 mls/hr IV ONETIME ONE Stop: 09/26/16 08:22 Last Admin: 09/26/16 06:58 Dose: 166 mls/hr Sodium Chloride (Normal Saline) 1,000 mls @ 999 mls/hr IV ASDIRECTED [facility] Last Admin: 09/26/16 07:45 Dose: 999 mls/hr Sodium Chloride (Normal Saline) 1,000 mls @ 125 mls/hr IV ASDIRECTED [facility] Sodium Chloride (Normal Saline) 1,000 mls @ 125 mls/hr IV ASDIRECTED [facility] Last Admin: 09/27/16 01:37 Dose: 125 mls/hr Lisinopril (Prinivil) 20 mg PO DAILY [facility] Non-Formulary Medication (Fentanyl [Fentanyl]) 12 mcg TD Q72H [facility] Last Admin: 09/26/16 13:49 Dose: Not Given - Exam Quality Assessment: supplemental oxygen, urine catheter, DVT prophylaxis General: alert, no acute distress Neck: supple, no JVD Lungs: Clear to auscultation, Other (moist bronchial noises, thick oral secretions noted and nursing does suction oral PRN. Strong intermittently cough. CXR stable yesterday. ) Cardiovascular: Regular Rate, Regular Rhythm Abdomen: bowel sounds present, soft, no tenderness, no distension Extremities: no edema, normal pulses Neurological: no new focal deficit Psy/Mental Status: alert, normal affect, normal mood - Problem List & Annotations (1) UTI (urinary tract infection) SNOMED Code(s): 71644916 Code(s): N39.0 - URINARY TRACT INFECTION, SITE NOT SPECIFIED Status: Acute Priority: High Current Visit: Yes Qualifiers: Encounter type: initial encounter (2) Sepsis SNOMED Code(s): 61858017 Code(s): A41.9 - SEPSIS, UNSPECIFIED ORGANISM Status: Resolved Priority: High Current Visit: Yes Qualifiers: Sepsis type: sepsis due to unspecified organism Qualified Code(s): A41.9 - Sepsis, unspecified organism Annotation/Comment:: likely urine source of sepsis (3) Fibromyalgia SNOMED Code(s): 444113940 Code(s): M79.7 - FIBROMYALGIA Status: Chronic Current Visit: Yes (4) Multiple sclerosis SNOMED Code(s): 96372928 Code(s): G35 - MULTIPLE SCLEROSIS Status: Chronic Current Visit: Yes (5) HTN (hypertension) SNOMED Code(s): 90539234 Code(s): I10 - ESSENTIAL (PRIMARY) HYPERTENSION Status: Chronic Current Visit: Yes Qualifiers: Hypertension type: essential hypertension Qualified Code(s): I10 - Essential (primary) hypertension (6) COPD (chronic obstructive pulmonary disease) SNOMED Code(s): 85051756 Code(s): J44.9 - CHRONIC OBSTRUCTIVE PULMONARY DISEASE, UNSPECIFIED Status : Acute Current Visit: Yes Qualifiers: COPD type: chronic bronchitis Chronic bronchitis type: mixed simple and mucopurulent Qualified Code(s): J41.8 - Mixed simple and mucopurulent chronic bronchitis (7) Hypothyroid SNOMED Code(s): 87685256 Code(s): E03.9 - HYPOTHYROIDISM, UNSPECIFIED Status: Chronic Current Visit: Yes Qualifiers: Hypothyroidism type: unspecified Qualified Code(s): E03.9 - Hypothyroidism , unspecified - Problem List Review Problem List Initiated/Reviewed/Updated: Yes - My Orders Last 24 Hours: My Active Orders 09/27/16 09:50 Consult to Speech Language Pathology [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 UTI: Continue Zosyn IV today. UC shows hein sensitive E. Coli. . BC 06/03 returned with gram positive cocci in clusters, consider contaminate?? SHe is continuing to improve with current treatment. Will monitor. Duonebs scheduled and Oxygen as needed, may wean as possible to keep sats 90%. Son report hx of COPD, so will not strive for high oxygen sats, 88-90% good. Weaned to 1.5 L NC this morning. May need more with sleep. Will remove adkins today. 2. Dypsnea/congestion: CXR negative yesterday. ST did come by to evaluate patient, but she was sleeping and no family present. She will attempt again today sometime. 3. HTN: Holding medications, secondary to lower BP and recent sepsis. Will add slowly back. 4. MS/Fibromyalgia: Continue Fentanyl patch and Tramadol for chronic pain. VTE prophylaxis: Heparin Dispo: Possible DC in am back to [facility].
[2016-09-28] MEDS: FLUoxetine 20 MG Cap PO SCH (08:34)
[2016-09-28] MEDS: predniSONE 20 MG Tab PO SCH (08:34)
[2016-09-28] MEDS ORDERED: methylPREDNISolone Sodium Succinate 125 MG/2 ML SDV IVPUSH ONE (09:54)
--- NOTE | 2016-09-28 09:57 | PCM.SN ---
- Free Text/Narrative Note: Nursing called with concerns of dyspnea and wheezing. Patient sitting up in chair awake, but will not verbally respond with concerns. Significant wheezing heard throughout lung rodriguez, was recently given Duoneb treatment with little improvement. Sats 94% on 3 L NC. Lung rodriguez wheezing and tight throughout. Will administer Solumedrol and order PRN albuterol as well. Patient has strong cough, no moist bronchial lung sounds heard. Will monitor.
[2016-09-28] MEDS: Albuterol 0.083% 2.5 MG/3 ML Neb Soln NEB PRN ×2 (13:53→16:22)
[2016-09-28] MEDS: Folic Acid 1 MG Tab PO SCH (20:06)
[2016-09-28] MEDS: Donepezil 10 MG Tab PO SCH (20:06)
[2016-09-28] MEDS: Mirtazapine 15 MG Tab PO SCH (20:07)
[2016-09-29] MEDS: Piperacillin/Tazobactam 3.375 GM in Sodium Chloride 0.9% 50 ML IV SCH ×2 (00:59→08:00)
[2016-09-29] MEDS: Albuterol/Ipratropium 3.0-0.5 MG/3 ML Neb Soln NEB SCH ×6 (01:03→22:10)
[2016-09-29 04:54] LABS: CHLORIDE,CL 117 mmol/L (98-110); SODIUM,NA 149 mmol/L (136-146)
[2016-09-29] MEDS: Levothyroxine 50 MCG Tab PO SCH (06:40)
[2016-09-29] MEDS: Heparin Sodium 5,000 Units/ML Vial SUBCUT SCH ×2 (06:44→15:16)
[2016-09-29] MEDS: predniSONE 20 MG Tab PO SCH (08:12)
[2016-09-29] MEDS: FLUoxetine 20 MG Cap PO SCH (08:12)
[2016-09-29] MEDS ORDERED: Dextrose 5% in Water 1,000 ML IV SCH (08:30)
--- NOTE | 2016-09-29 08:32 | PCM.PN ---
Addendum entered and electronically signed by Gloria Henry NP 09/29/16 10: 09: Hypernatremia noted this am, will administer d5w at 75 ml hr recheck this afternoon and in am. Pending improvement, dc in am to [facility] Note: - General Info Date of Service: 09/29/16 Admission Dx/Problem (Free Text): Admission Diagnosis/Problem Admission Diagnosis/Problem UTI, Sepsis Subjective Update: Sitting up in chair, just finished with breakfast, ate all her cream of wheat. Was fed by nurse. No apparent distress this am. Breathing less labored. Continues to have moist breath sounds, but improved today. No nursing concerns Unable to obtain ROS, non verbal. Functional Status: Reports: pain controlled, tolerating diet, urinating - Patient Data Vitals - most recent: Last Vital Signs Temp 97.8 F 09/29/16 07:30 Pulse 84 09/29/16 07:30 Resp 18 09/29/16 07:30 BP 132/61 09/29/16 07:30 Pulse Ox 96 09/29/16 07:30 Weight - most recent: 70.2 kg I&O - last 24 hours: Intake & Output 09/28/16 09/29/16 09/29/16 22:59 06:59 14:59 Intake Total 400 100 Output Total 400 772 Balance 0 -672 Lab Results last 24 hrs: Laboratory Results - last 24 hr 09/29/16 09/29/16 Range/Units 04:33 04:33 WBC 5.12 (4.0-11.0) K/uL RBC 3.48 L (4.30-5.90) M/uL Hgb 10.6 L (12.0-16.0) g/dL Hct 32.8 L (36.0-46.0) % MCV 94.3 (80.0-98.0) fL MCH 30.5 (27.0-32.0) pg MCHC 32.3 (31.0-37.0) g/dL RDW Std Deviation 54.0 (28.0-62.0) fl RDW Coeff of Maricel 16 H (11.0-15.0) % Plt Count 218 (150-400) K/uL MPV 9.60 (7.40-12.00) fL Neut % (Auto) 79.3 (48.0-80.0) % Lymph % (Auto) 11.1 L (16.0-40.0) % Pitt % (Auto) 9.6 (0.0-15.0) % Eos % (Auto) 0.0 (0.0-7.0) % Baso % (Auto) 0.0 (0.0-1.5) % Neut # (Auto) 4.1 (1.4-5.7) K/uL Lymph # (Auto) 0.6 (0.6-2.4) K/uL Pitt # (Auto) 0.5 (0.0-0.8) K/uL Eos # (Auto) 0.0 (0.0-0.7) K/uL Baso # (Auto) 0.0 (0.0-0.1) K/uL Nucleated RBC % 0.0 /100WBC Nucleated RBCs # 0 K/uL Sodium 149 H (136-146) mmol/L Potassium 3.4 L (3.5-5.1) mmol/L Chloride 117 H (98-110) mmol/L Carbon Dioxide 21 (21-31) mmol/L BUN 15 (6.0-23.0) mg/dL Creatinine 0.9 (0.6-1.5) mg/dL Est Cr Clr Drug Dosing 38.44 mL/min Estimated GFR (MDRD) > 60.0 ml/min Glucose 172 H (60-110) mg/dL Calcium 8.4 L (8.8-10.8) mg/dL Med Orders - Current: Current Medications Albuterol (Proventil Neb Soln) 2.5 mg NEB Q2H PRN PRN Reason: SOB/wheezing Last Admin: 09/28/16 16:22 Dose: 2.5 mg Albuterol/Ipratropium (Duoneb 3.0-0.5 Mg/3 Ml) 3 ml NEB Q4HRRT [facility] Last Admin: 09/29/16 06:01 Dose: 3 ml Donepezil HCl (Aricept) 10 mg PO BEDTIME [facility] Last Admin: 09/28/16 20:06 Dose: 10 mg Fentanyl (Duragesic) 12 mcg TRDERM Q72H [facility] Last Admin: 09/27/16 04:38 Dose: 12 mcg Fluoxetine HCl (Prozac) 40 mg PO DAILY [facility] Last Admin: 09/29/16 08:12 Dose: 40 mg Folic Acid (Folic Acid) 1 mg PO BEDTIME [facility] Last Admin: 09/28/16 20:06 Dose: 1 mg Heparin Sodium (Porcine) (Heparin Sodium) 5,000 units SUBCUT Q8H [facility] Last Admin: 09/29/16 06:44 Dose: 5,000 units Piperacillin Sod/Tazobactam (Sod 3.375 gm/ Sodium Chloride) 50 mls @ 100 mls/ hr IV Q6H [facility] Last Admin: 09/29/16 08:00 Dose: 100 mls/hr Dextrose/Water (Dextrose 5% In Water) 1,000 mls @ 75 mls/hr IV ASDIRECTED [facility] Stop: 09/29/16 21:49 Levothyroxine Sodium (Synthroid) 50 mcg PO ACBREAKFAST [facility] Last Admin: 09/29/16 06:40 Dose: 50 mcg Mirtazapine (Remeron) 45 mg PO BEDTIME [facility] Last Admin: 09/28/16 20:07 Dose: 45 mg Morphine Sulfate (Morphine) 2 mg IVPUSH Q2H PRN PRN Reason: Pain Last Admin: 09/27/16 13:34 Dose: 2 mg Prednisone (Prednisone) 20 mg PO DAILY [facility] Last Admin: 09/29/16 08:12 Dose: 20 mg Tramadol HCl (Ultram) 50 mg PO TID PRN PRN Reason: Pain Last Admin: 09/28/16 04:48 Dose: 50 mg Discontinued Medications Acetaminophen (Tylenol) Confirm Administered Dose 325 mg .ROUTE .STK-MED ONE Stop: 09/26/16 06:03 Last Admin: 09/26/16 06:05 Dose: 325 mg Acetaminophen (Tylenol) 325 mg RECTAL NOW ONE Stop: 09/26/16 06:03 Last Admin: 09/26/16 06:24 Dose: Not Given Albuterol/Ipratropium (Duoneb 3.0-0.5 Mg/3 Ml) 3 ml NEB ONETIME ONE Stop: 09/26/16 05:36 Last Admin: 09/26/16 05:35 Dose: 3 ml Albuterol/Ipratropium (Duoneb 3.0-0.5 Mg/3 Ml) Confirm Administered Dose 3 ml .ROUTE .STK-MED ONE Stop: 09/26/16 05:36 Last Admin: 09/26/16 06:15 Dose: Not Given Albuterol/Ipratropium (Duoneb 3.0-0.5 Mg/3 Ml) 3 ml NEB Q4HRRT PRN PRN Reason: SOB/wheezing Last Admin: 09/27/16 05:48 Dose: 3 ml Amlodipine Besylate (Norvasc) 2.5 mg PO DAILY [facility] Last Admin: 09/27/16 08:10 Dose: 2.5 mg Levofloxacin/Dextrose 750 mg/ (Premix) 150 mls @ 100 mls/hr IV ONETIME ONE Stop: 09/26/16 07:49 Last Admin: 09/26/16 06:27 Dose: 100 mls/hr Vancomycin HCl 1 gm/ Sodium (Chloride) 250 mls @ 166 mls/hr IV ONETIME ONE Stop: 09/26/16 08:22 Last Admin: 09/26/16 06:58 Dose: 166 mls/hr Sodium Chloride (Normal Saline) 1,000 mls @ 999 mls/hr IV ASDIRECTED [facility] Last Admin: 09/26/16 07:45 Dose: 999 mls/hr Sodium Chloride (Normal Saline) 1,000 mls @ 125 mls/hr IV ASDIRECTED [facility] Sodium Chloride (Normal Saline) 1,000 mls @ 125 mls/hr IV ASDIRECTED [facility] Last Admin: 09/27/16 01:37 Dose: 125 mls/hr Lisinopril (Prinivil) 20 mg PO DAILY [facility] Methylprednisolone Sodium Succinate (Solu-Medrol) 125 mg IVPUSH ONETIME ONE Stop: 09/28/16 09:55 Last Admin: 09/28/16 10:04 Dose: 125 mg Non-Formulary Medication (Fentanyl [Fentanyl]) 12 mcg TD Q72H [facility] Last Admin: 09/26/16 13:49 Dose: Not Given - Exam Quality Assessment: supplemental oxygen, DVT prophylaxis General: alert, oriented, cooperative, no acute distress HEENT: Pupils equal, Pupils reactive, EOMI, Mucous membr. moist/pink Lungs: Wheezing (throughout, less than yesterday), Other (moist bronchial noises ) Cardiovascular: Regular Rate, Regular Rhythm, No Murmurs Abdomen: bowel sounds present, soft, no tenderness, no distension Extremities: no edema, normal pulses Neurological: no new focal deficit Psy/Mental Status: alert, normal affect, normal mood - Problem List & Annotations (1) UTI (urinary tract infection) SNOMED Code(s): 67166612 Code(s): N39.0 - URINARY TRACT INFECTION, SITE NOT SPECIFIED Status: Acute Priority: High Current Visit: Yes Qualifiers: Encounter type: initial encounter (2) Sepsis SNOMED Code(s): 31989188 Code(s): A41.9 - SEPSIS, UNSPECIFIED ORGANISM Status: Resolved Priority: High Current Visit: Yes Qualifiers: Sepsis type: sepsis due to unspecified organism Qualified Code(s): A41.9 - Sepsis, unspecified organism Annotation/Comment:: likely urine source of sepsis (3) Fibromyalgia SNOMED Code(s): 046571711 Code(s): M79.7 - FIBROMYALGIA Status: Chronic Current Visit: Yes (4) Multiple sclerosis SNOMED Code(s): 69462288 Code(s): G35 - MULTIPLE SCLEROSIS Status: Chronic Current Visit: Yes (5) HTN (hypertension) SNOMED Code(s): 95197961 Code(s): I10 - ESSENTIAL (PRIMARY) HYPERTENSION Status: Chronic Current Visit: Yes Qualifiers: Hypertension type: essential hypertension Qualified Code(s): I10 - Essential (primary) hypertension (6) COPD (chronic obstructive pulmonary disease) SNOMED Code(s): 70629350 Code(s): J44.9 - CHRONIC OBSTRUCTIVE PULMONARY DISEASE, UNSPECIFIED Status : Acute Current Visit: Yes Qualifiers: COPD type: chronic bronchitis Chronic bronchitis type: mixed simple and mucopurulent Qualified Code(s): J41.8 - Mixed simple and mucopurulent chronic bronchitis (7) Hypothyroid SNOMED Code(s): 89829859 Code(s): E03.9 - HYPOTHYROIDISM, UNSPECIFIED Status: Chronic Current Visit: Yes Qualifiers: Hypothyroidism type: unspecified Qualified Code(s): E03.9 - Hypothyroidism , unspecified - Problem List Review Problem List Initiated/Reviewed/Updated: Yes - My Orders Last 24 Hours: My Active Orders 09/28/16 09:57 Albuterol [Proventil Neb Soln] 2.5 mg NEB Q2H PRN 09/28/16 Dinner Pureed Diet [DIET] 09/29/16 08:30 Dextrose 5% in Water @ 75 MLS/HR(1000ml) Dextrose 5% in Water 1,000 ml IV ASDIRECTED 09/29/16 14:00 BMP [BASIC METABOLIC PANEL,BMP] [CHEM] Routine 09/30/16 05:00 BMP [BASIC METABOLIC PANEL,BMP] [CHEM] DAILY CBC WITH AUTO DIFF [HEME] DAILY - Plan Plan:: This 81 year old female admitted with urosepsis 1. UTI: Discontinue Zosyn. Will start Keflex 500 mg BID. UC shows hein sensitive E. Coli. BC 06/03 returned with coag neg staph, contaminated. She is continuing to improve with current treatment. Will monitor. Duonebs scheduled and Oxygen as needed, may wean as possible to keep sats 90%. Son report hx of COPD. 2. COPD: Will add Solumedrol IV Q12 to help with wheezing and dyspnea. May have mild exacerbation. 3. Dypsnea/congestion: ST did come by to evaluate patient, will need modified barium swallow study, unable to be done here due to no Radiology in house, will order to be done as outpatient. 4. HTN: Holding medications, secondary to lower BP and recent sepsis. Will add slowly back. 5. MS/Fibromyalgia: Continue Fentanyl patch and Tramadol for chronic pain. VTE prophylaxis: Heparin Dispo: Possible DC in am back to [facility].
[2016-09-29] MEDS: Cephalexin 500 MG Cap PO SCH ×2 (12:45→21:42)
[2016-09-29] MEDS: methylPREDNISolone Sodium Succinate 40 MG/1 ML SDV IVPUSH SCH (13:10)
[2016-09-29 14:33] LABS: CHLORIDE,CL 115 mmol/L (98-110); SODIUM,NA 147 mmol/L (136-146)
[2016-09-29] MEDS ORDERED: Potassium Chloride 20 MEQ Tab.ER PO ONE (14:50)
[2016-09-29] MEDS: Donepezil 10 MG Tab PO SCH (21:41)
[2016-09-29] MEDS: Folic Acid 1 MG Tab PO SCH (21:41)
[2016-09-29] MEDS: Mirtazapine 15 MG Tab PO SCH (21:42)
[2016-09-30] MEDS: methylPREDNISolone Sodium Succinate 40 MG/1 ML SDV IVPUSH SCH ×2 (00:13→16:09)
[2016-09-30] MEDS: Heparin Sodium 5,000 Units/ML Vial SUBCUT SCH ×3 (00:18→16:12)
[2016-09-30] MEDS: Albuterol/Ipratropium 3.0-0.5 MG/3 ML Neb Soln NEB SCH ×4 (01:49→16:09)
[2016-09-30] MEDS: fentaNYL 12 MCG/HR Transdermal Patch TRDERM SCH (05:01)
[2016-09-30 06:34] LABS: CHLORIDE,CL 115 mmol/L (98-110); SODIUM,NA 148 mmol/L (136-146)
[2016-09-30] MEDS: Levothyroxine 50 MCG Tab PO SCH (06:38)
--- NOTE | 2016-09-30 08:26 | PCM.PN ---
- General Info Admission Dx/Problem (Free Text): Admission Diagnosis/Problem Admission Diagnosis/Problem UTI, Sepsis Subjective Update: Sitting up in chair, just finished with breakfast, ate all her cream of wheat. Was fed by nurse. No apparent distress this am. Breathing less labored. Continues to have moist breath sounds, but improved today. No nursing concerns Unable to obtain ROS, non verbal. Functional Status: Reports: pain controlled, tolerating diet - Review of Systems General: Reports: No Symptoms (poor historian) HEENT: Reports: no symptoms Pulmonary: Reports: no symptoms Cardiovascular: Reports: No Symptoms Gastrointestinal: Reports: No symptoms Genitourinary: Reports: no symptoms Musculoskeletal: Reports: no symptoms Skin: Reports: no symptoms Neurological: Reports: No Symptoms Psychiatric: Reports: no symptoms - Patient Data Vitals - most recent: Last Vital Signs Temp 36.1 C 09/30/16 03:00 Pulse 94 09/30/16 03:00 Resp 18 09/30/16 03:00 BP 131/60 09/30/16 03:00 Pulse Ox 94 L 09/30/16 05:00 Weight - most recent: 71 kg I&O - last 24 hours: Intake & Output 09/29/16 09/30/16 09/30/16 22:59 06:59 14:59 Intake Total 1720 240 Balance 1720 240 Lab Results last 24 hrs: Laboratory Results - last 24 hr 09/29/16 09/30/16 09/30/16 Range/Units 13:57 05:10 05:10 WBC 8.01 (4.0-11.0) K/uL RBC 3.75 L (4.30-5.90) M/uL Hgb 11.1 L (12.0-16.0) g/dL Hct 36.0 (36.0-46.0) % MCV 96.0 (80.0-98.0) fL MCH 29.6 (27.0-32.0) pg MCHC 30.8 L (31.0-37.0) g/dL RDW Std Deviation 54.8 (28.0-62.0) fl RDW Coeff of Maricel 16 H (11.0-15.0) % Plt Count 264 (150-400) K/uL MPV 9.60 (7.40-12.00) fL Add Manual Diff YES Neutrophils % (Manual) 83 H (48.0-80.0) % Band Neutrophils % 3 % Lymphocytes % (Manual) 10 L (16.0-40.0) % Monocytes % (Manual) 4 (0.0-15.0) % Nucleated RBC % 0.0 /100WBC Absolute Seg Neuts 6.6 Band Neutrophils # 0.2 Lymphocytes # (Manual) 0.8 Monocytes # (Manual) 0.3 Nucleated RBCs # 0 K/uL Sodium 147 H 148 H (136-146) mmol/L Potassium 3.4 L 3.7 (3.5-5.1) mmol/L Chloride 115 H 115 H (98-110) mmol/L Carbon Dioxide 21 21 (21-31) mmol/L BUN 17 21 (6.0-23.0) mg/dL Creatinine 0.8 0.8 (0.6-1.5) mg/dL Est Cr Clr Drug Dosing 43.24 43.24 mL/min Estimated GFR (MDRD) > 60.0 > 60.0 ml/min Glucose 213 H 126 H (60-110) mg/dL Calcium 8.2 L 8.9 (8.8-10.8) mg/dL Med Orders - Current: Current Medications Albuterol (Proventil Neb Soln) 2.5 mg NEB Q2H PRN PRN Reason: SOB/wheezing Last Admin: 09/28/16 16:22 Dose: 2.5 mg Albuterol/Ipratropium (Duoneb 3.0-0.5 Mg/3 Ml) 3 ml NEB Q4HRRT COUNTS INCLUDE 234 BEDS AT [facility] Last Admin: 09/30/16 05:50 Dose: 3 ml Cephalexin (Keflex) 500 mg PO Q12HR COUNTS INCLUDE 234 BEDS AT [facility] Last Admin: 09/29/16 21:42 Dose: 500 mg Donepezil HCl (Aricept) 10 mg PO BEDTIME COUNTS INCLUDE 234 BEDS AT [facility] Last Admin: 09/29/16 21:41 Dose: 10 mg Fentanyl (Duragesic) 12 mcg TRDERM Q72H COUNTS INCLUDE 234 BEDS AT [facility] Last Admin: 09/30/16 05:01 Dose: 12 mcg Fluoxetine HCl (Prozac) 40 mg PO DAILY COUNTS INCLUDE 234 BEDS AT [facility] Last Admin: 09/29/16 08:12 Dose: 40 mg Folic Acid (Folic Acid) 1 mg PO BEDTIME COUNTS INCLUDE 234 BEDS AT [facility] Last Admin: 09/29/16 21:41 Dose: 1 mg Heparin Sodium (Porcine) (Heparin Sodium) 5,000 units SUBCUT Q8H COUNTS INCLUDE 234 BEDS AT [facility] Last Admin: 09/30/16 06:44 Dose: 5,000 units Levothyroxine Sodium (Synthroid) 50 mcg PO ACBREAKFAST COUNTS INCLUDE 234 BEDS AT [facility] Last Admin: 09/30/16 06:38 Dose: 50 mcg Methylprednisolone Sodium Succinate (Solu-Medrol) 40 mg IVPUSH Q12H COUNTS INCLUDE 234 BEDS AT [facility] Last Admin: 09/30/16 00:13 Dose: 40 mg Mirtazapine (Remeron) 45 mg PO BEDTIME COUNTS INCLUDE 234 BEDS AT [facility] Last Admin: 09/29/16 21:42 Dose: 45 mg Morphine Sulfate (Morphine) 2 mg IVPUSH Q2H PRN PRN Reason: Pain Last Admin: 09/27/16 13:34 Dose: 2 mg Prednisone (Prednisone) 20 mg PO DAILY COUNTS INCLUDE 234 BEDS AT [facility] Last Admin: 09/29/16 08:12 Dose: 20 mg Tramadol HCl (Ultram) 50 mg PO TID PRN PRN Reason: Pain Last Admin: 09/28/16 04:48 Dose: 50 mg Discontinued Medications Acetaminophen (Tylenol) Confirm Administered Dose 325 mg .ROUTE .STK-MED ONE Stop: 09/26/16 06:03 Last Admin: 09/26/16 06:05 Dose: 325 mg Acetaminophen (Tylenol) 325 mg RECTAL NOW ONE Stop: 09/26/16 06:03 Last Admin: 09/26/16 06:24 Dose: Not Given Albuterol/Ipratropium (Duoneb 3.0-0.5 Mg/3 Ml) 3 ml NEB ONETIME ONE Stop: 09/26/16 05:36 Last Admin: 09/26/16 05:35 Dose: 3 ml Albuterol/Ipratropium (Duoneb 3.0-0.5 Mg/3 Ml) Confirm Administered Dose 3 ml .ROUTE .STK-MED ONE Stop: 09/26/16 05:36 Last Admin: 09/26/16 06:15 Dose: Not Given Albuterol/Ipratropium (Duoneb 3.0-0.5 Mg/3 Ml) 3 ml NEB Q4HRRT PRN PRN Reason: SOB/wheezing Last Admin: 09/27/16 05:48 Dose: 3 ml Amlodipine Besylate (Norvasc) 2.5 mg PO DAILY COUNTS INCLUDE 234 BEDS AT [facility] Last Admin: 09/27/16 08:10 Dose: 2.5 mg Levofloxacin/Dextrose 750 mg/ (Premix) 150 mls @ 100 mls/hr IV ONETIME ONE Stop: 09/26/16 07:49 Last Admin: 09/26/16 06:27 Dose: 100 mls/hr Vancomycin HCl 1 gm/ Sodium (Chloride) 250 mls @ 166 mls/hr IV ONETIME ONE Stop: 09/26/16 08:22 Last Admin: 09/26/16 06:58 Dose: 166 mls/hr Sodium Chloride (Normal Saline) 1,000 mls @ 999 mls/hr IV ASDIRECTED COUNTS INCLUDE 234 BEDS AT [facility] Last Admin: 09/26/16 07:45 Dose: 999 mls/hr Piperacillin Sod/Tazobactam (Sod 3.375 gm/ Sodium Chloride) 50 mls @ 100 mls/ hr IV Q6H COUNTS INCLUDE 234 BEDS AT [facility] Last Admin: 09/29/16 08:00 Dose: 100 mls/hr Sodium Chloride (Normal Saline) 1,000 mls @ 125 mls/hr IV ASDIRECTED COUNTS INCLUDE 234 BEDS AT [facility] Sodium Chloride (Normal Saline) 1,000 mls @ 125 mls/hr IV ASDIRECTED COUNTS INCLUDE 234 BEDS AT [facility] Last Admin: 09/27/16 01:37 Dose: 125 mls/hr Dextrose/Water (Dextrose 5% In Water) 1,000 mls @ 75 mls/hr IV ASDIRECTED COUNTS INCLUDE 234 BEDS AT [facility] Stop: 09/29/16 21:49 Last Infusion: 09/29/16 22:09 Dose: Infused Lisinopril (Prinivil) 20 mg PO DAILY COUNTS INCLUDE 234 BEDS AT [facility] Methylprednisolone Sodium Succinate (Solu-Medrol) 125 mg IVPUSH ONETIME ONE Stop: 09/28/16 09:55 Last Admin: 09/28/16 10:04 Dose: 125 mg Non-Formulary Medication (Fentanyl [Fentanyl]) 12 mcg TD Q72H COUNTS INCLUDE 234 BEDS AT [facility] Last Admin: 09/26/16 13:49 Dose: Not Given Potassium Chloride (Klor-Con M20) 40 meq PO ONETIME ONE Stop: 09/29/16 14:51 Last Admin: 09/29/16 15:16 Dose: 40 meq - Exam Quality Assessment: supplemental oxygen General: cooperative. No: alert HEENT: Pupils equal, Pupils reactive Neck: supple Lungs: Rales (bibasilar) Abdomen: bowel sounds present, soft (no reaction to palpation) Back Exam: Decreased Range of Motion Extremities: no edema Skin: warm, dry, intact Neurological: no new focal deficit Psy/Mental Status: No: alert - Problem List & Annotations (1) Sepsis SNOMED Code(s): 93264863 Code(s): A41.9 - SEPSIS, UNSPECIFIED ORGANISM Status: Resolved Priority: High Current Visit: Yes Qualifiers: Sepsis type: sepsis due to unspecified organism Qualified Code(s): A41.9 - Sepsis, unspecified organism Annotation/Comment:: likely urine source of sepsis (2) Lactic acid acidosis SNOMED Code(s): 42553375 Code(s): E87.2 - ACIDOSIS Status: Acute Priority: High Current Visit: Yes (3) Leukocytosis (leucocytosis) SNOMED Code(s): 209509227, 385613831 Code(s): D72.829 - ELEVATED WHITE BLOOD CELL COUNT, UNSPECIFIED Status: Acute Priority: High Current Visit: Yes (4) Tachycardia SNOMED Code(s): 2299154 Code(s): R00.0 - TACHYCARDIA, UNSPECIFIED Status: Acute Priority: High Current Visit: Yes (5) Mobility impaired SNOMED Code(s): 27957567 Code(s): Z74.09 - OTHER REDUCED MOBILITY Status: Acute Priority: High Current Visit: Yes (6) Multiple sclerosis SNOMED Code(s): 82201788 Code(s): G35 - MULTIPLE SCLEROSIS Status: Chronic Current Visit: Yes (7) Altered mental status, unspecified SNOMED Code(s): 007982632 Code(s): R41.82 - ALTERED MENTAL STATUS, UNSPECIFIED Status: Chronic Priority: Medium Current Visit: Yes (8) UTI (urinary tract infection) SNOMED Code(s): 88134027 Code(s): N39.0 - URINARY TRACT INFECTION, SITE NOT SPECIFIED Status: Acute Priority: High Current Visit: Yes Qualifiers: Encounter type: initial encounter - Problem List Review Problem List Initiated/Reviewed/Updated: Yes - Plan Plan:: This 81 year old female admitted with urosepsis 1. UTI: Discontinue Zosyn. Will start Keflex 500 mg BID. UC shows hein sensitive E. Coli. BC 2/ returned with coag neg staph, contaminated. She is continuing to improve with current treatment. Will monitor. Duonebs scheduled and Oxygen as needed, may wean as possible to keep sats 90%. Son report hx of COPD. 2. COPD: Will add Solumedrol IV Q12 to help with wheezing and dyspnea. May have mild exacerbation. 3. Dypsnea/congestion: ST did come by to evaluate patient, will need modified barium swallow study, unable to be done here due to no Radiology in house, will order to be done as outpatient. 4. HTN: Holding medications, secondary to lower BP and recent sepsis. Will add slowly back. 5. MS/Fibromyalgia: Continue Fentanyl patch and Tramadol for chronic pain. VTE prophylaxis: Heparin Dispo: Possible DC in am back to [facility]. Sep 30, 2016: The patient is a 81-year-old lady who had been admitted secondary to sepsis likely urinary source. The patient has been on IV antibiotics consisting of Keflex as the causative organism of her urinary tract infection shows it to be sensitive to cephalosporins. The patient objectively has made some improvements although she does have some chronic mental and physical issues. Patient is back at her baseline. The patient also be kept on her fentanyl patch and tramadol as necessary for her chronic pain. The patient is also on oxygen support and this will be continued. The patient still has had some crackles in her lung rodriguez she is not having any respiratory distress. The patient appears to be resting comfortably. If possible the patient should be able to be transferred back [facility]. I'll see the patient on followup if this is unable to be accomplished. Patient for now should continue on her current plan as prescribed. The patient's leukocytosis is resolved.
[2016-09-30] MEDS: Cephalexin 500 MG Cap PO SCH (09:36)
[2016-09-30] MEDS: FLUoxetine 20 MG Cap PO SCH (09:36)
[2016-09-30] MEDS: predniSONE 20 MG Tab PO SCH (09:36)
--- NOTE | 2016-09-30 11:12 | PCM.DCSUM1 ---
Discharge Summary - Hospital Course Free Text/Narrative:: the patient is back at her baseline functioning status. She is still DO NOT INTUBATE DO NOT RESUSCITATE category. Brief History: the patient was admitted secondary to altered mental status as well as urinary tract infection - Discharge Data Discharge Date: 09/30/16 Discharge Disposition: DC/Tfer to SNF 03 Condition: Fair - Discharge Diagnosis/Problem(s) (1) Sepsis SNOMED Code(s): 44227384 ICD Code: A41.9 - SEPSIS, UNSPECIFIED ORGANISM Status: Resolved Priority : High Current Visit: Yes Problem Details: likely urine source of sepsis Qualifiers: Sepsis type: sepsis due to unspecified organism Qualified Code(s): A41.9 - Sepsis, unspecified organism (2) Lactic acid acidosis SNOMED Code(s): 90627192 ICD Code: E87.2 - ACIDOSIS Status: Chronic Priority: High Current Visit : Yes (3) Leukocytosis (leucocytosis) SNOMED Code(s): 262725634, 435256153 ICD Code: D72.829 - ELEVATED WHITE BLOOD CELL COUNT, UNSPECIFIED Status: Resolved Priority: High Current Visit: Yes (4) Tachycardia SNOMED Code(s): 4178070 ICD Code: R00.0 - TACHYCARDIA, UNSPECIFIED Status: Resolved Priority: High Current Visit: Yes (5) Mobility impaired SNOMED Code(s): 69061318 ICD Code: Z74.09 - OTHER REDUCED MOBILITY Status: Chronic Priority: High Current Visit: Yes (6) Multiple sclerosis SNOMED Code(s): 89875362 ICD Code: G35 - MULTIPLE SCLEROSIS Status: Chronic Current Visit: Yes (7) Altered mental status, unspecified SNOMED Code(s): 143256988 ICD Code: R41.82 - ALTERED MENTAL STATUS, UNSPECIFIED Status: Chronic Priority: Medium Current Visit: Yes (8) UTI (urinary tract infection) SNOMED Code(s): 85409804 ICD Code: N39.0 - URINARY TRACT INFECTION, SITE NOT SPECIFIED Status: Resolved Priority: High Current Visit: Yes Qualifiers: Encounter type: initial encounter - Patient Summary/Data Consults: Consultations 09/27/16 09:50 Consult to Speech Language Pathology [PRE BILLING SPECIALIST Evaluation and Treatment] [CONS] Routine Hospital Course: The patient is a 81-year-old lady who had been admitted secondary to sepsis likely urinary source. The patient has been on IV antibiotics consisting of Keflex as the causative organism of her urinary tract infection shows it to be sensitive to cephalosporins. The patient objectively has made some improvements although she does have some chronic mental and physical issues. Patient is back at her baseline. The patient also be kept on her fentanyl patch and tramadol as necessary for her chronic pain. The patient is also on oxygen support and this will be continued. The patient still has had some crackles in her lung rodriguez she is not having any respiratory distress. The patient appears to be resting comfortably. If possible the patient should be able to be transferred back to [facility] today. I'll see the patient on followup if this is unable to be accomplished. Patient for now should continue on her current plan as prescribed. The patient's leukocytosis is resolved.The patient was seen earlier today and the patient does have a bed available at [facility]. The patient is at her baseline. I signed orders for transfer back to [facility]. The patient remains in a DO NOT INTUBATE/DO NOT RESUSCITATE category. Previous urinary tract infection has resolved. The patient has been discharged with recommendation to continue mechanical soft diet, oxygen at 2 L per minute, I have also ordered PT OT and speech therapy. The patient is to continue on her medications from [facility] and activity as tolerated. - Patient Instructions Diet: Mechanical Soft Activity: Bedrest - Discharge Plan Home Medications: Home Meds Calcium Carbonate/Vitamin D3 [Calcium 600 + Vit D 400 Softgl] 1 cap PO DAILY [History] Cholestyramine/Aspartame [Questran Light Powder] 4 gm PO DAILY 03/29/16 [History ] Cyanocobalamin (Vitamin B12) [Vitamin B12] 1,000 mcg PO DAILY 03/29/16 [History] FLUoxetine [PROzac] 40 mg PO DAILY 03/29/16 [History] Hydrocortisone [Hydrocortisone 2.5% Crm] 1 applic TOP DAILY PRN 03/29/16 [ History] Ibuprofen [Motrin] 200 mg PO Q6H PRN 03/29/16 [History] Lisinopril 20 mg PO DAILY 03/29/16 [History] Loratadine 10 mg PO DAILY PRN 03/29/16 [History] Multivitamin [Multivitamins] 1 tab PO DAILY 03/29/16 [History] amLODIPine Besylate [Norvasc] 2.5 mg PO DAILY 03/29/16 [History] Albuterol Sulfate 2.5 mg INH Q6H PRN 09/26/16 [History] Albuterol [IJD: Albuterol] 2.5 mg NEB Q2H PRN #0 nebule 09/30/16 [Rx] Albuterol/Ipratropium [DuoNeb 3.0-0.5 MG/3 ML] 3 ml NEB Q4HRRT neb 09/30/16 [Rx ] Donepezil [Aricept] 10 mg PO BEDTIME tablet 09/30/16 [Rx] FLUoxetine [PROzac] 40 mg PO DAILY cap 09/30/16 [Rx] Folic Acid 1 mg PO BEDTIME tablet 09/30/16 [Rx] Levothyroxine [Synthroid] 50 mcg PO ACBREAKFAST tablet 09/30/16 [Rx] Mirtazapine [Remeron] 45 mg PO BEDTIME tablet 09/30/16 [Rx] Prednisone [IJD: predniSONE] 20 mg PO DAILY tablet 09/30/16 [Rx] fentaNYL [Duragesic] 12 mcg TRDERM Q72H patch 09/30/16 [Rx] traMADol [Ultram] 50 mg PO TID PRN #0 tablet 09/30/16 [Rx] Other Amb Orders: PT Evaluation and Treatment [CONS] Location: Determined By Patient RT Supplemental Oxygen Titration [RESPCARE] Location: Determined By Patient Patient Handouts: Urinary Tract Infection, Adult Referrals: Dimitri Martinez MD [Physician] - - Discharge Summary/Plan Comment DC Time >30 min.: Yes - Patient Data Vitals - Most Recent: Last Vital Signs Temp 36.2 C 09/30/16 08:00 Pulse 80 09/30/16 08:00 Resp 17 09/30/16 08:00 BP 157/83 H 09/30/16 08:00 Pulse Ox 95 09/30/16 08:00 Weight - Most Recent: 71 kg I&O - Last 24 hours: Intake & Output 09/29/16 09/30/16 09/30/16 22:59 06:59 14:59 Intake Total 1720 240 Balance 1720 240 Lab Results - Last 24 hrs: Laboratory Results - last 24 hr 09/29/16 09/30/16 09/30/16 Range/Units 13:57 05:10 05:10 WBC 8.01 (4.0-11.0) K/uL RBC 3.75 L (4.30-5.90) M/uL Hgb 11.1 L (12.0-16.0) g/dL Hct 36.0 (36.0-46.0) % MCV 96.0 (80.0-98.0) fL MCH 29.6 (27.0-32.0) pg MCHC 30.8 L (31.0-37.0) g/dL RDW Std Deviation 54.8 (28.0-62.0) fl RDW Coeff of Maricel 16 H (11.0-15.0) % Plt Count 264 (150-400) K/uL MPV 9.60 (7.40-12.00) fL Add Manual Diff YES Neutrophils % (Manual) 83 H (48.0-80.0) % Band Neutrophils % 3 % Lymphocytes % (Manual) 10 L (16.0-40.0) % Monocytes % (Manual) 4 (0.0-15.0) % Nucleated RBC % 0.0 /100WBC Absolute Seg Neuts 6.6 Band Neutrophils # 0.2 Lymphocytes # (Manual) 0.8 Monocytes # (Manual) 0.3 Nucleated RBCs # 0 K/uL Sodium 147 H 148 H (136-146) mmol/L Potassium 3.4 L 3.7 (3.5-5.1) mmol/L Chloride 115 H 115 H (98-110) mmol/L Carbon Dioxide 21 21 (21-31) mmol/L BUN 17 21 (6.0-23.0) mg/dL Creatinine 0.8 0.8 (0.6-1.5) mg/dL Est Cr Clr Drug Dosing 43.24 43.24 mL/min Estimated GFR (MDRD) > 60.0 > 60.0 ml/min Glucose 213 H 126 H (60-110) mg/dL Calcium 8.2 L 8.9 (8.8-10.8) mg/dL Med Orders - Current: Current Medications Albuterol (Proventil Neb Soln) 2.5 mg NEB Q2H PRN PRN Reason: SOB/wheezing Last Admin: 09/28/16 16:22 Dose: 2.5 mg Albuterol/Ipratropium (Duoneb 3.0-0.5 Mg/3 Ml) 3 ml NEB Q4HRRT [facility] Last Admin: 09/30/16 09:55 Dose: 3 ml Cephalexin (Keflex) 500 mg PO Q12HR [facility] Last Admin: 09/30/16 09:36 Dose: 500 mg Donepezil HCl (Aricept) 10 mg PO BEDTIME [facility] Last Admin: 09/29/16 21:41 Dose: 10 mg Fentanyl (Duragesic) 12 mcg TRDERM Q72H [facility] Last Admin: 09/30/16 05:01 Dose: 12 mcg Fluoxetine HCl (Prozac) 40 mg PO DAILY [facility] Last Admin: 09/30/16 09:36 Dose: 40 mg Folic Acid (Folic Acid) 1 mg PO BEDTIME [facility] Last Admin: 09/29/16 21:41 Dose: 1 mg Heparin Sodium (Porcine) (Heparin Sodium) 5,000 units SUBCUT Q8H [facility] Last Admin: 09/30/16 06:44 Dose: 5,000 units Levothyroxine Sodium (Synthroid) 50 mcg PO ACBREAKFAST [facility] Last Admin: 09/30/16 06:38 Dose: 50 mcg Methylprednisolone Sodium Succinate (Solu-Medrol) 40 mg IVPUSH Q12H [facility] Last Admin: 09/30/16 00:13 Dose: 40 mg Mirtazapine (Remeron) 45 mg PO BEDTIME [facility] Last Admin: 09/29/16 21:42 Dose: 45 mg Morphine Sulfate (Morphine) 2 mg IVPUSH Q2H PRN PRN Reason: Pain Last Admin: 09/27/16 13:34 Dose: 2 mg Prednisone (Prednisone) 20 mg PO DAILY [facility] Last Admin: 09/30/16 09:36 Dose: 20 mg Tramadol HCl (Ultram) 50 mg PO TID PRN PRN Reason: Pain Last Admin: 09/28/16 04:48 Dose: 50 mg Discontinued Medications Acetaminophen (Tylenol) Confirm Administered Dose 325 mg .ROUTE .STK-MED ONE Stop: 09/26/16 06:03 Last Admin: 09/26/16 06:05 Dose: 325 mg Acetaminophen (Tylenol) 325 mg RECTAL NOW ONE Stop: 09/26/16 06:03 Last Admin: 09/26/16 06:24 Dose: Not Given Albuterol/Ipratropium (Duoneb 3.0-0.5 Mg/3 Ml) 3 ml NEB ONETIME ONE Stop: 09/26/16 05:36 Last Admin: 09/26/16 05:35 Dose: 3 ml Albuterol/Ipratropium (Duoneb 3.0-0.5 Mg/3 Ml) Confirm Administered Dose 3 ml .ROUTE .STK-MED ONE Stop: 09/26/16 05:36 Last Admin: 09/26/16 06:15 Dose: Not Given Albuterol/Ipratropium (Duoneb 3.0-0.5 Mg/3 Ml) 3 ml NEB Q4HRRT PRN PRN Reason: SOB/wheezing Last Admin: 09/27/16 05:48 Dose: 3 ml Amlodipine Besylate (Norvasc) 2.5 mg PO DAILY [facility] Last Admin: 09/27/16 08:10 Dose: 2.5 mg Levofloxacin/Dextrose 750 mg/ (Premix) 150 mls @ 100 mls/hr IV ONETIME ONE Stop: 09/26/16 07:49 Last Admin: 09/26/16 06:27 Dose: 100 mls/hr Vancomycin HCl 1 gm/ Sodium (Chloride) 250 mls @ 166 mls/hr IV ONETIME ONE Stop: 09/26/16 08:22 Last Admin: 09/26/16 06:58 Dose: 166 mls/hr Sodium Chloride (Normal Saline) 1,000 mls @ 999 mls/hr IV ASDIRECTED [facility] Last Admin: 09/26/16 07:45 Dose: 999 mls/hr Piperacillin Sod/Tazobactam (Sod 3.375 gm/ Sodium Chloride) 50 mls @ 100 mls/ hr IV Q6H [facility] Last Admin: 09/29/16 08:00 Dose: 100 mls/hr Sodium Chloride (Normal Saline) 1,000 mls @ 125 mls/hr IV ASDIRECTED [facility] Sodium Chloride (Normal Saline) 1,000 mls @ 125 mls/hr IV ASDIRECTED [facility] Last Admin: 09/27/16 01:37 Dose: 125 mls/hr Dextrose/Water (Dextrose 5% In Water) 1,000 mls @ 75 mls/hr IV ASDIRECTED [facility] Stop: 09/29/16 21:49 Last Infusion: 09/29/16 22:09 Dose: Infused Lisinopril (Prinivil) 20 mg PO DAILY [facility] Methylprednisolone Sodium Succinate (Solu-Medrol) 125 mg IVPUSH ONETIME ONE Stop: 09/28/16 09:55 Last Admin: 09/28/16 10:04 Dose: 125 mg Non-Formulary Medication (Fentanyl [Fentanyl]) 12 mcg TD Q72H [facility] Last Admin: 09/26/16 13:49 Dose: Not Given Potassium Chloride (Klor-Con M20) 40 meq PO ONETIME ONE Stop: 09/29/16 14:51 Last Admin: 09/29/16 15:16 Dose: 40 meq *Q Meaningful Use (DIS) - VTE *Q VTE Criteria *Q: VTE Pharmacological Contraindications *Q: Cerebral Hemorrhag Infarc - Stroke *Q Stroke Criteria *Q: - AMI *Q AMI Criteria *Q:
[2016-09-30 12:08] VITALS: BP 160/74
== END 2016-09-30 13:15 | DRG 872 ==
LOC: MW.ED 05:20 → MW.MS 06:58
PROVIDERS: ADMIT Internal Medicine; ATTEND Internal Medicine
DX: A41.9 Sepsis, unspecified organism (principal); N39.0 Urinary tract infection, site not specified; J18.9 Pneumonia, unspecified organism; J44.1 Chronic obstructive pulmonary disease with (acute) exacerbation; E87.2 Acidosis; E87.1 Hypo-osmolality and hyponatremia; B96.20 Unspecified Escherichia coli [E. coli] as the cause of diseases classified elsewhere; D72.829 Elevated white blood cell count, unspecified; R00.0 Tachycardia, unspecified; G35 Multiple sclerosis; R41.82 Altered mental status, unspecified; E78.00 Pure hypercholesterolemia, unspecified; I10 Essential (primary) hypertension; R06.00 Dyspnea, unspecified; K21.9 Gastro-esophageal reflux disease without esophagitis; I73.00 Raynaud's syndrome without gangrene; M35.3 Polymyalgia rheumatica; F32.9 Major depressive disorder, single episode, unspecified; F03.90 Unspecified dementia, unspecified severity, without behavioral disturbance, psychotic disturbance, mood disturbance, and anxiety; E03.9 Hypothyroidism, unspecified; Z88.8 Allergy status to other drugs, medicaments and biological substances; Z79.899 Other long term (current) drug therapy; Z74.09 Other reduced mobility; Z66 Do not resuscitate
CPT/HCPCS: 36415; 36600 ×2; 71010; 80053; 81001; 82803; 83605; 83880; 85025; 85610; 87040 ×2; 87086; 87186; 96365; 99285; A9270; J1956; 80048; 87088; 93005; 94640; 96360; 96366; 96368; J1644; J2270; J2543; J2920; J2930; J3370; J7040; J7050; J7060

== ENCOUNTER 2016-11-26 15:32 | Inpatient (IN) | payer MEDICARE, MEDICAID ==
--- NOTE | 2016-11-26 15:53 | EDM.PDOC ---
ED HPI GENERAL MEDICAL PROBLEM - General Stated Complaint: PT HURT RT EYE Time Seen by Provider: 11/26/16 15:44 Source of Information: Reports: EMS, Half-Way Records History Limitations: Reports: Physical Impairment - History of Present Illness INITIAL COMMENTS - FREE TEXT/NARRATIVE: HISTORY AND PHYSICAL: History of present illness: [81-year-old male with past medical history of multiple sclerosis bedridden with contractures of the extremities non-verbal and communicates by blinking now sent for evaluation of fall out of bed. Staff says patient fell out of bed and sustained a laceration on her right cheek. It was unknown if she lost consciousness. No visible deformities and patient is at baseline mental status. Patient has a known chronic history of pneumomediastinum and family has elected not to treat this. Patient has a DO NOT RESUSCITATE DO NOT INTUBATE status] Review of systems: As per history of present illness and below otherwise all systems reviewed and negative. Past medical history: As per history of present illness and as reviewed below otherwise noncontributory. Surgical history: As per history of present illness and as reviewed below otherwise noncontributory. Social history: No reported history of drug or alcohol abuse. Family history: As per history of present illness and as reviewed below otherwise noncontributory. Physical exam: Chronically ill-appearing profoundly weak female resting with eyes open able to blink upon request, no acute distress. Patient has a laceration of her right cheek and a right subconjunctival hematoma. Her pupils are equal and reactive bilaterally. C-spine immobilization maintained during exam but no midline tenderness of the C-spine or step-off detectable. Collar placed. No chest wall tenderness or spinal tenderness. No bony crepitus appreciated. Patient with nontender abdomen nondistended no CVA tenderness. Normal nontender and stable pelvis. Lower extremities with plantar flexion contractures of both ankles and feet. HEENT: Atraumatic, normocephalic, pupils reactive, negative for conjunctival pallor or scleral icterus, mucous membranes moist, throat clear, neck supple, nontender, trachea midline. Lungs: Clear to auscultation, breath sounds equal bilaterally, chest nontender. Heart: S1S2, regular, negative for clicks, rubs, or JVD. Abdomen: Soft, nondistended, nontender. Negative for masses or hepatosplenomegaly. Negative for costovertebral tenderness. Pelvis: Stable nontender. Genitourinary: Deferred. Rectal: Deferred. Extremities: Atraumatic, negative for cords or calf pain. Neurovascular unremarkable. Neuro: Awake, baseline mental status per EMS as described by halfway staff .patient profoundly weak globally with bilateral lower extremity contractures as well as left upper extremity contracture. Patient does follow commands to blink when requested Diagnostics: [Full workup pending including labs EKG chest x-ray pelvis x-ray and CTs of the head C-spine and maxillofacial distribution] Therapeutics: [] Impression: [Facial contusion Facial laceration Minor head injury UTI Sirs Sepsis Leukocytosis Metabolic acidosis Severe hyponatremia ] Plan: [Facial laceration after injury the details of which are unknown. Patient is DNR /DNI however full workup is pending. Hemodynamically stable] Full medical workup including straight catheter UA shows UTI with white blood cell count elevated at 18. Urine culture pending. Rocephin ordered. Patient intimately tachycardic however this is resolved on M.D. reevaluation prior to admission. Sodium 126 and CO2 19. Patient has a prior history of lactic acidosis. Case discussed with patient's son present at the bedside. He is extremely well informed about his mother's medical case and agrees with inpatient admission for medical treatment despite her DNR status. Case discussed with Dr. Goran Douglass hospitalist property economist is aware of history and findings and agrees with inpatient admission to his service for further workup and treatment as needed. He will follow x-rays of left hip however on clinical reevaluation prior to admission patient with no focal tenderness in that area but these x-rays are being done for definitive visualization given possible abnormality visualized on the pelvis x-ray Definitive disposition and diagnosis as appropriate pending reevaluation and review of above. - Related Data Allergies Allergy/AdvReac Type Severity Reaction Status Date / Time baclofen Allergy Other Verified 09/26/16 05:43 celecoxib [From Celebrex] Allergy Other Verified 09/26/16 05:43 propoxyphene Allergy Other Verified 09/26/16 05:43 sulfamethoxazole Allergy Other Verified 09/26/16 05:43 [From Septra] trimethoprim [From ] Allergy Other Verified 09/26/16 05:43 Home Meds: Home Meds Calcium Carbonate/Vitamin D3 [Calcium 600 + Vit D 400 Softgl] 1 cap PO DAILY [History] Cholestyramine/Aspartame [Questran Light Powder] 4 gm PO DAILY 03/29/16 [History ] Cyanocobalamin (Vitamin B12) [Vitamin B12] 1,000 mcg PO DAILY 03/29/16 [History] FLUoxetine [PROzac] 40 mg PO DAILY 03/29/16 [History] Hydrocortisone [Hydrocortisone 2.5% Crm] 1 applic TOP DAILY PRN 03/29/16 [ History] Ibuprofen [Motrin] 200 mg PO Q6H PRN 03/29/16 [History] Lisinopril 20 mg PO DAILY 03/29/16 [History] Loratadine 10 mg PO DAILY PRN 03/29/16 [History] Multivitamin [Multivitamins] 1 tab PO DAILY 03/29/16 [History] amLODIPine Besylate [Norvasc] 2.5 mg PO DAILY 03/29/16 [History] Albuterol Sulfate 2.5 mg INH Q6H PRN 09/26/16 [History] Albuterol [IJD: Albuterol] 2.5 mg NEB Q2H PRN #0 nebule 09/30/16 [Rx] Albuterol/Ipratropium [DuoNeb 3.0-0.5 MG/3 ML] 3 ml NEB Q4HRRT neb 09/30/16 [Rx ] Donepezil [Aricept] 10 mg PO BEDTIME tablet 09/30/16 [Rx] FLUoxetine [PROzac] 40 mg PO DAILY cap 09/30/16 [Rx] Folic Acid 1 mg PO BEDTIME tablet 09/30/16 [Rx] Levothyroxine [Synthroid] 50 mcg PO ACBREAKFAST tablet 09/30/16 [Rx] Mirtazapine [Remeron] 45 mg PO BEDTIME tablet 09/30/16 [Rx] Prednisone [IJD: predniSONE] 20 mg PO DAILY tablet 09/30/16 [Rx] fentaNYL [Duragesic] 12 mcg TRDERM Q72H patch 09/30/16 [Rx] traMADol [Ultram] 50 mg PO TID PRN #0 tablet 09/30/16 [Rx] Past Medical History HEENT History: Reports: Impaired Vision Cardiovascular History: Reports: High Cholesterol, Hypertension Other Cardiovascular History: raynauds Gastrointestinal History: Reports: GERD Genitourinary History: Reports: UTI, Recurrent 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: Musculoskeletal History: Reports: Arthritis, Fibromyalgia, Other (See Below) Other Musculoskeletal History: polymyalgia rheumatica, MS Neurological History: Reports: MS Psychiatric History: Reports: Dementia, Depression Endocrine/Metabolic History: Reports: Hypothyroidism Social & Family History - Family History Family Medical History: Noncontributory - Tobacco Use Smoking Status *Q: Never Smoker - Caffeine Use Caffeine Use: Reports: Coffee - Recreational Drug Use Recreational Drug Use: No - Living Situation & Occupation Living situation: Reports: Extended Care Facility ED ROS GENERAL - Review of Systems Review Of Systems: See Below (History of present illness) ED EXAM, GENERAL - Physical Exam Exam: See Below (HPI) Course - Orders/Labs/Meds Orders: Active Orders 24 hr Category Date Time Status EKG Documentation Completion [RC] STAT Care 11/26/16 15:45 Active Vaccines to be Administered [RC] PER UNIT ROUTINE Care 11/26/16 18:47 Ordered Cervical Spine wo Cont [CT] Stat Exams 11/26/16 15:45 Taken Chest 1V Frontal [CR] Stat Exams 11/26/16 15:45 Taken Forearm 2V Lt [CR] Stat Exams 11/26/16 17:33 Taken Head wo Cont [CT] Stat Exams 11/26/16 15:45 Taken Hip Min 4V Lt [CR] Stat Exams 11/26/16 18:39 Ordered Humerus Lt [CR] Stat Exams 11/26/16 17:33 Taken Max Facial Sinus wo Cont [CT] Stat Exams 11/26/16 15:45 Taken Pelvis 1V or 2V [CR] Stat Exams 11/26/16 15:45 Taken CULTURE BLOOD [BC] Stat Lab 11/26/16 18:48 Ordered CULTURE BLOOD [BC] Stat Lab 11/26/16 18:48 Ordered CULTURE URINE [RM] Stat Lab 11/26/16 18:37 Uncollected LACTIC ACID,WHOLE BLOOD [BG] Stat Lab 11/26/16 18:48 Ordered Sodium Chloride 0.9% [Normal Saline] 250 ml Med 11/26/16 18:45 Ordered IV STAT cefTRIAXone [Rocephin in Dextrose,Iso-Osm 1 GM/50 ML] 1 Med 11/26/16 18:36 Ordered gm Premix Bag 1 bag IV ONETIME Blood Culture x2 Reflex Set [OM.PC] Stat Oth 11/26/16 18:47 Ordered Peripheral IV Insertion Adult [OM.PC] Stat Oth 11/26/16 15:45 Ordered Medication Orders Sodium Chloride (Normal Saline) 250 mls @ 999 mls/hr IV STAT WILBUR Ceftriaxone Sodium/Dextrose 1 (gm/ Premix) 50 mls @ 100 mls/hr IV ONETIME ONE Stop: 11/26/16 19:05 Labs: Laboratory Tests 11/26/16 11/26/16 11/26/16 Range/Units 16:00 16:08 16:08 WBC 18.49 H (4.0-11.0) K/uL RBC 3.70 L (4.30-5.90) M/uL Hgb 11.1 L (12.0-16.0) g/dL Hct 33.3 L (36.0-46.0) % MCV 90.0 (80.0-98.0) fL MCH 30.0 (27.0-32.0) pg MCHC 33.3 (31.0-37.0) g/dL RDW Std Deviation 49.8 (28.0-62.0) fl RDW Coeff of Maricel 15 (11.0-15.0) % Plt Count 269 (150-400) K/uL MPV 8.80 (7.40-12.00) fL Add Manual Diff YES Neutrophils % (Manual) 89 H (48.0-80.0) % Band Neutrophils % 2 % Lymphocytes % (Manual) 3 L (16.0-40.0) % Monocytes % (Manual) 6 (0.0-15.0) % Nucleated RBC % 0.0 /100WBC Absolute Seg Neuts 16.5 Band Neutrophils # 0.4 Lymphocytes # (Manual) 0.6 Monocytes # (Manual) 1.1 Nucleated RBCs # 0 K/uL Sodium 126 L (136-146) mmol/L Potassium 4.7 (3.5-5.1) mmol/L Chloride 95 L (98-110) mmol/L Carbon Dioxide 19 L (21-31) mmol/L BUN 24 H (6.0-23.0) mg/dL Creatinine 1.4 (0.6-1.5) mg/dL Est Cr Clr Drug Dosing TNP Estimated GFR (MDRD) 36.1 ml/min Glucose 134 H (60-110) mg/dL Calcium 9.0 (8.8-10.8) mg/dL Total Bilirubin 0.4 (0.1-1.5) mg/dL AST 24 (5-40) IU/L ALT 22 (8-54) IU/L Alkaline Phosphatase 75 (40-150) Troponin I (0.0-0.29) NG/ML Total Protein 6.7 (6.0-8.0) g/dL Albumin 3.6 (3.4-4.8) g/dL Globulin 3.1 (2.0-3.5) g/dL Albumin/Globulin Ratio 1.2 L (1.3-2.8) Urine Color YELLOW Urine Appearance CLEAR Urine pH 5.5 (5.0-8.0) Ur Specific Starr 1.025 (1.001-1.035) Urine Protein NEGATIVE (NEGATIVE) mg/dL Urine Glucose (UA) NEGATIVE (NEGATIVE) mg/dL Urine Ketones NEGATIVE (NEGATIVE) mg/dL Urine Occult Blood MODERATE (NEGATIVE) Urine Nitrite POSITIVE H (NEGATIVE) Urine Bilirubin NEGATIVE (NEGATIVE) Urine Urobilinogen 0.2 (<2.0) EU/dL Ur Leukocyte Esterase MODERATE (NEGATIVE) Urine RBC 0-2 (0-2/HPF) Urine WBC 40-45 (0-5/HPF) Ur Epithelial Cells FEW (NONE-FEW) Urine Bacteria 2+ H (NEGATIVE) 11/26/16 Range/Units 16:08 WBC (4.0-11.0) K/uL RBC (4.30-5.90) M/uL Hgb (12.0-16.0) g/dL Hct (36.0-46.0) % MCV (80.0-98.0) fL MCH (27.0-32.0) pg MCHC (31.0-37.0) g/dL RDW Std Deviation (28.0-62.0) fl RDW Coeff of Maricel (11.0-15.0) % Plt Count (150-400) K/uL MPV (7.40-12.00) fL Add Manual Diff Neutrophils % (Manual) (48.0-80.0) % Band Neutrophils % % Lymphocytes % (Manual) (16.0-40.0) % Monocytes % (Manual) (0.0-15.0) % Nucleated RBC % /100WBC Absolute Seg Neuts Band Neutrophils # Lymphocytes # (Manual) Monocytes # (Manual) Nucleated RBCs # K/uL Sodium (136-146) mmol/L Potassium (3.5-5.1) mmol/L Chloride (98-110) mmol/L Carbon Dioxide (21-31) mmol/L BUN (6.0-23.0) mg/dL Creatinine (0.6-1.5) mg/dL Est Cr Clr Drug Dosing Estimated GFR (MDRD) ml/min Glucose (60-110) mg/dL Calcium (8.8-10.8) mg/dL Total Bilirubin (0.1-1.5) mg/dL AST (5-40) IU/L ALT (8-54) IU/L Alkaline Phosphatase (40-150) Troponin I < 0.10 (0.0-0.29) NG/ML Total Protein (6.0-8.0) g/dL Albumin (3.4-4.8) g/dL Globulin (2.0-3.5) g/dL Albumin/Globulin Ratio (1.3-2.8) Urine Color Urine Appearance Urine pH (5.0-8.0) Ur Specific Starr (1.001-1.035) Urine Protein (NEGATIVE) mg/dL Urine Glucose (UA) (NEGATIVE) mg/dL Urine Ketones (NEGATIVE) mg/dL Urine Occult Blood (NEGATIVE) Urine Nitrite (NEGATIVE) Urine Bilirubin (NEGATIVE) Urine Urobilinogen (<2.0) EU/dL Ur Leukocyte Esterase (NEGATIVE) Urine RBC (0-2/HPF) Urine WBC (0-5/HPF) Ur Epithelial Cells (NONE-FEW) Urine Bacteria (NEGATIVE) Meds: Medications Generic Name Dose Route Start Last Admin Trade Name Freq PRN Reason Stop Dose Admin Sodium Chloride 250 mls @ 999 mls/hr 11/26/16 18:45 Normal Saline IV STAT WILBUR Ceftriaxone Sodium/Dextrose 1 50 mls @ 100 mls/hr 11/26/16 18:36 gm/ Premix IV 11/26/16 19:05 ONETIME ONE Discontinued Medications Generic Name Dose Route Start Last Admin Trade Name Freq PRN Reason Stop Dose Admin Diphtheria/Tetanus/Acell Pertussis 0.5 ml 11/26/16 18:47 Adacel IM 11/26/16 18:48 .ONCE ONE Hydromorphone HCl 0.5 mg 11/26/16 18:30 Dilaudid IVPUSH 11/26/16 18:31 ONETIME ONE Departure - Departure Time of Disposition: 18:54 Disposition: Admitted As Inpatient 66 Condition: Fair Clinical Impression: SIRS (systemic inflammatory response syndrome), Sepsis, Leukocytosis, Hyponatremia, Facial contusion, Facial laceration, Minor head injury UTI (urinary tract infection) Qualifiers: Urinary tract infection type: acute cystitis Hematuria presence: with hematuria Qualified Code(s): N30.01 - Acute cystitis with hematuria - Discharge Information - My Orders Last 24 Hours: My Active Orders 11/26/16 15:45 EKG Documentation Completion [RC] STAT Cervical Spine wo Cont [CT] Stat Chest 1V Frontal [CR] Stat Head wo Cont [CT] Stat Max Facial Sinus wo Cont [CT] Stat Pelvis 1V or 2V [CR] Stat Peripheral IV Insertion Adult [OM.PC] Stat 11/26/16 17:33 Forearm 2V Lt [CR] Stat Humerus Lt [CR] Stat 11/26/16 18:36 cefTRIAXone [Rocephin in Dextrose,Iso-Osm 1 GM/50 ML] 1 gm Premix Bag 1 bag IV ONETIME 11/26/16 18:37 CULTURE URINE [RM] Stat 11/26/16 18:39 Hip Min 4V Lt [CR] Stat 11/26/16 18:45 Sodium Chloride 0.9% [Normal Saline] 250 ml IV STAT 11/26/16 18:47 Vaccines to be Administered [RC] PER UNIT ROUTINE Blood Culture x2 Reflex Set [OM.PC] Stat 11/26/16 18:48 CULTURE BLOOD [BC] Stat CULTURE BLOOD [BC] Stat LACTIC ACID,WHOLE BLOOD [BG] Stat - Assessment/Plan Last 24 Hours: My Active Orders 11/26/16 15:45 EKG Documentation Completion [RC] STAT Cervical Spine wo Cont [CT] Stat Chest 1V Frontal [CR] Stat Head wo Cont [CT] Stat Max Facial Sinus wo Cont [CT] Stat Pelvis 1V or 2V [CR] Stat Peripheral IV Insertion Adult [OM.PC] Stat 11/26/16 17:33 Forearm 2V Lt [CR] Stat Humerus Lt [CR] Stat 11/26/16 18:36 cefTRIAXone [Rocephin in Dextrose,Iso-Osm 1 GM/50 ML] 1 gm Premix Bag 1 bag IV ONETIME 11/26/16 18:37 CULTURE URINE [RM] Stat 11/26/16 18:39 Hip Min 4V Lt [CR] Stat 11/26/16 18:45 Sodium Chloride 0.9% [Normal Saline] 250 ml IV STAT 11/26/16 18:47 Vaccines to be Administered [RC] PER UNIT ROUTINE Blood Culture x2 Reflex Set [OM.PC] Stat 11/26/16 18:48 CULTURE BLOOD [BC] Stat CULTURE BLOOD [BC] Stat LACTIC ACID,WHOLE BLOOD [BG] Stat
[2016-11-26 16:40] LABS: CHLORIDE,CL 95 mmol/L (98-110); SODIUM,NA 126 mmol/L (136-146)
[2016-11-26] MEDS ORDERED: HYDROmorphone 1 MG/ML Syringe IVPUSH ONE (18:30)
[2016-11-26] MEDS ORDERED: cefTRIAXone 1 GM in Premix Bag 1 BAG IV ONE (18:36)
[2016-11-26] MEDS ORDERED: Sodium Chloride 0.9% 250 ML IV SCH (18:45)
[2016-11-26] MEDS ORDERED: Diphtheria,Pertussis(Acell),Tetanus Vaccine 0.5 ML Syringe IM ONE (18:47)
[2016-11-26] MEDS ORDERED: Sodium Chloride 0.9% 1,000 ML IV ONE (18:58)
--- NOTE | 2016-11-26 20:32 | PCM.SN ---
- Free Text/Narrative Note: Please note that the x-rays of the hip were endorsed to me to follow-up prior to the patient going to the floor. The x-ray does not show any definite evidence of fracture but generalized osteopenia and as the patient does not have tenderness in the area we will not perform a CT scan here in the ED. The patient is also chronically bedridden and is currently septic so she needs care for her sepsis at this time. I did discuss with the family at bedside and they said that even if the hip were fractured they would decline surgery.
--- NOTE | 2016-11-26 21:41 | PCM.HP ---
H&P History of Present Illness - General Admit Problem/Dx: Admission Diagnosis/Problem Admission Diagnosis/Problem Sepsis - History of Present Illness Initial Comments - Free Text/Narative: 81 yo female with pmh of MS with severe disability, patient is nonverbal, nonmotile. She presents to the ED following a fall with laceration below right eye - Related Data Allergies/Adverse Reactions: Allergies Allergy/AdvReac Type Severity Reaction Status Date / Time baclofen Allergy Other Verified 11/26/16 21:27 celecoxib [From Celebrex] Allergy Other Verified 11/26/16 21:27 propoxyphene Allergy Other Verified 11/26/16 21:27 sulfamethoxazole Allergy Other Verified 11/26/16 21:27 [From Septra] trimethoprim [From Septra] Allergy Other Verified 11/26/16 21:27 Home Medications: Home Meds Cholestyramine/Aspartame [Questran Light Powder] 4 gm PO DAILY 03/29/16 [History ] Cyanocobalamin (Vitamin B12) [Vitamin B12] 1,000 mcg PO DAILY 03/29/16 [History] FLUoxetine [PROzac] 40 mg PO DAILY 03/29/16 [History] Ibuprofen [Motrin] 200 mg PO Q6H PRN 03/29/16 [History] Lisinopril 20 mg PO DAILY 03/29/16 [History] Loratadine 10 mg PO DAILY PRN 03/29/16 [History] Multivitamin [Multivitamins] 1 tab PO DAILY 03/29/16 [History] amLODIPine Besylate [Norvasc] 2.5 mg PO DAILY 03/29/16 [History] Donepezil [Aricept] 10 mg PO BEDTIME tablet 09/30/16 [Rx] Folic Acid 1 mg PO BEDTIME tablet 09/30/16 [Rx] Mirtazapine [Remeron] 45 mg PO BEDTIME tablet 09/30/16 [Rx] Prednisone [IJD: predniSONE] 20 mg PO DAILY tablet 09/30/16 [Rx] Modafinil [Provigil] 100 mg PO BID 11/26/16 [History] Albuterol [IJD: Albuterol] 2.5 mg NEB Q6H PRN 11/27/16 [History] Hydrocortisone [Hydrocortisone 2.5% Crm] 1 applic TOP Q24H PRN 11/27/16 [History ] Levothyroxine [Synthroid] 50 mcg PO ACBREAKFAST 11/27/16 [History] Levothyroxine [Synthroid] 75 mcg PO ACBREAKFAST 11/27/16 [History] Nystatin [Nystatin Crm] 1 applic TOP BEDTIME 11/27/16 [History] Cefdinir 300 mg PO BID #16 capsule 11/28/16 [Rx] fentaNYL [Duragesic] 12 mcg TRDERM Q72H #10 patch 11/28/16 [Rx] traMADol [Ultram] 50 mg PO Q8H PRN #15 tablet 11/28/16 [Rx] Past Medical History HEENT History: Reports: Impaired Vision Cardiovascular History: Reports: High Cholesterol, Hypertension Other Cardiovascular History: raynauds Gastrointestinal History: Reports: GERD Genitourinary History: Reports: UTI, Recurrent 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: Musculoskeletal History: Reports: Arthritis, Fibromyalgia, Other (See Below) Other Musculoskeletal History: polymyalgia rheumatica, MS Neurological History: Reports: MS Psychiatric History: Reports: Dementia, Depression Endocrine/Metabolic History: Reports: Hypothyroidism Social & Family History - Family History Family Medical History: Noncontributory - Tobacco Use Smoking Status *Q: Never Smoker - Caffeine Use Caffeine Use: Reports: Coffee - Recreational Drug Use Recreational Drug Use: No - Living Situation & Occupation Living situation: Reports: Extended Care Facility H&P Review of Systems - Review of Systems: Review Of Systems: Unable To Obtain Exam - Exam Exam: See Below - Vital Signs Weight: 71 kg - Exam General: Sedated. No: Mild Distress HEENT: Other (echymosis uner left right eye with abrasion) Lungs: Clear to Auscultation, Normal Respiratory Effort Cardiovascular: Regular Rate, Regular Rhythm Extremities: No Pedal Edema Skin: Warm, Dry, Intact - Patient Data Result Diagrams: 11/28/16 04:55 11/28/16 04:55 *Q Meaningful Use (ADM) - VTE *Q VTE Criteria *Q: - Stroke *Q Stroke Criteria *Q: - AMI *Q AMI Criteria *Q: Problem List Initiated/Reviewed/Updated: Yes Orders Last 24hrs: Active Orders 24 hr Category Date Time Status Antiembolic Devices [RC] PER UNIT ROUTINE Care 11/26/16 21:36 Ordered Intake and Output [RC] QSHIFT Care 11/26/16 21:35 Ordered Oxygen Therapy [RC] PRN Care 11/26/16 21:35 Ordered VTE/DVT Education [RC] PER UNIT ROUTINE Care 11/26/16 21:35 Ordered Vital Signs [RC] Q4H Care 11/26/16 21:35 Ordered Regular Diet [DIET] Diet 11/26/16 Breakfast Ordered BASIC METABOLIC PANEL,BMP [CHEM] AM Lab 11/27/16 05:11 Ordered CBC WITH AUTO DIFF [HEME] AM Lab 11/27/16 05:11 Ordered LACTIC ACID,WHOLE BLOOD [BG] Q6H Lab 11/26/16 22:00 Ordered LACTIC ACID,WHOLE BLOOD [BG] Q6H Lab 11/27/16 04:00 Ordered LACTIC ACID,WHOLE BLOOD [BG] Q6H Lab 11/27/16 10:00 Ordered LACTIC ACID,WHOLE BLOOD [BG] Q6H Lab 11/27/16 16:00 Ordered Albuterol/Ipratropium [DuoNeb 3.0-0.5 MG/3 ML] Med 11/26/16 22:00 Ordered 3 ml NEB Q4HRRT Levothyroxine [Synthroid] Med 11/27/16 07:30 Ordered 50 mcg PO ACBREAKFAST predniSONE Med 11/27/16 09:00 Ordered 20 mg PO DAILY Sequential Compression Device [OM.PC] Per Unit Routine Oth 11/26/16 21:35 Ordered Resuscitation Status Routine Resus Stat 11/26/16 21:35 Ordered Medication Orders Albuterol/Ipratropium (Duoneb 3.0-0.5 Mg/3 Ml) 3 ml NEB Q4HRRT WILBUR Levothyroxine Sodium (Synthroid) 50 mcg PO ACBREAKFAST WILBUR Prednisone (Prednisone) 20 mg PO DAILY [facility] Assessment/Plan Comment:: 81 yo female admitted following fall with UTI and sepsis. Will rescucitate with IV fluids and treat with Rocephin. Son is at bedside and goals of care are primarily palliative.
[2016-11-26] MEDS: Albuterol/Ipratropium 3.0-0.5 MG/3 ML Neb Soln NEB SCH (22:44)
[2016-11-27] MEDS: Albuterol/Ipratropium 3.0-0.5 MG/3 ML Neb Soln NEB SCH ×6 (01:56→21:03)
[2016-11-27 04:32] LABS: CHLORIDE,CL 102 mmol/L (98-110); SODIUM,NA 134 mmol/L (136-146)
[2016-11-27] MEDS: Sodium Chloride 0.9% 1,000 ML IV SCH ×3 (05:48→22:36)
[2016-11-27] MEDS: Levothyroxine 50 MCG Tab PO SCH (06:56)
[2016-11-27] MEDS ORDERED: Levothyroxine 50 MCG Tab PO SCH (07:30)
[2016-11-27] MEDS: predniSONE 20 MG Tab PO SCH (09:28)
--- NOTE | 2016-11-27 14:01 | CR ---
EXAM DATE: 11/26/16 PATIENT'S AGE: 81 Patient: AWA CONTRERAS Facility: [place], [place] Site . Site : 1935 Study: XRay Chest [id number]/30/2017 5:27:38 PM Ordering Physician: Doctor Zamora Final Report: INDICATION: Trauma. Technique: Single view chest. Comparison: Portable chest on 09/27/2016. Findings: Limited inspiration on the part of the patient. Allowing for this the heart and mediastinum are normal in size and stable. Bandlike atelectasis or scarring in the right hilum similar to prior study. Pulmonary vessels are normal. Lungs free of acute airspace consolidation. Stable mild elevation of the right hemidiaphragm. No pleural fluid. No acute bony abnormality. Impression: Stable chest. No acute chest disease. Dictated by Jenny Reyes MD @ Nov 26 2016 5:54PM (Electronic Signature) Report Signed by Proxy. ELYSSA
--- NOTE | 2016-11-27 14:02 | CR ---
EXAM DATE: 11/26/16 PATIENT'S AGE: 81 Patient: AWA CONTRERAS Facility: [place], [place] Site . Site : 1935 Study: XRay Pelvis [id number]/30/2017 5:27:52 PM Ordering Physician: Doctor Zamora Final Report: INDICATION: Trauma TECHNIQUE: AP pelvis COMPARISON: None FINDINGS: Bones: Questionable foreshortening of the left femoral neck without rotation. Joint spaces: Mild degenerative changes involving both hip joints. Soft tissues: Unremarkable. IMPRESSION: Questionable foreshortening of the left innominate without rotation of the patient. If left hip injury is clinically suspected, then dedicated views of the left hip recommended. Dictated by Vasile Ugarte MD @ 11/26/2016 6:21:13 PM Dictated by: Vasile Ugarte MD @ 11/26/2016 18:21:40 (Electronic Signature) Report Signed by Proxy. MTDAlberto
--- NOTE | 2016-11-27 14:04 | CT ---
EXAM DATE: 11/26/16 PATIENT'S AGE: 81 Patient: AWA CONTRERAS Facility: [place], [place] Site . Site : 1935 Study: CT Head [id number]/30/2017 5:39:00 PM Ordering Physician: Doctor Zamora Final Report: Indication: Trauma. Technique: CT head: Performed without IV contrast. CT facial bones: Performed without IV contrast Comparison: None available. Findings: CT Head: No hemorrhage is identified. No cortical edema or ischemia is localized on this exam. No mass lesion or ventricular obstruction. Widespread areas of reduced attenuation in the cerebral white matter typical for advanced small vessel ischemic change. Moderate cerebral and trace cerebellar atrophy. The calvarium and skull base are unremarkable, with normal aeration of the visualized petrous temporal bones on both sides. CT facial bones: No facial bone fractures are identified. The mandible, maxilla , nasal bones and nasal spine, zygomatic bones and orbital rims are intact on both sides. No evidence for orbital hematoma. Impression: CT head: 1. No hemorrhage. 2. No evidence for brain contusion or fracture. 3 advanced small vessel ischemic change. Moderate cerebral atrophy. CT facial bones: No fractures are identified. Please note that all CT scans at this facility use dose modulation, iterative reconstruction, and/or weight-based dosing when appropriate to reduce radiation dose to as low as reasonably achievable. Dictated by Andrew Brito MD @ Nov 26 2016 5:58PM (Electronic Signature) Report Signed by Proxy. [facility]
--- NOTE | 2016-11-27 14:05 | CT ---
EXAM DATE: 11/26/16 PATIENT'S AGE: 81 Patient: AWA CONTRERAS Facility: [place], [place] Site . Site : 1935 Study: CT Spine Cervical [id number]/30/2017 5:39:21 PM Ordering Physician: Doctor Zamora Final Report: Indication: Pain following trauma. Technique: Performed without IV contrast. Comparison: None available. Findings: Mildly exaggerated cervical lordosis and upper thoracic kyphosis. Slight degenerative anterolisthesis at C5-6 and C7-T1. No traumatic subluxation identified. No evidence for fracture. The paraspinal soft tissues are grossly negative. Craniocervical junction and C1-C2: Moderate degenerative changes. The foramina are patent. C2-3 through C5-6: Advanced facet degenerative changes. Low-grade disk degeneration. Low-grade foraminal narrowing. C6-7: Low-grade disk and facet degenerative changes. Foramina patent. C7-T1: Advanced facet osteoarthritis. Mild disk degeneration. Low-grade foraminal narrowing. Impression: 1. No fracture or traumatic subluxation identified. 2. Widespread spondylosis, detailed above. Please note that all CT scans at this facility use dose modulation, iterative reconstruction, and/or weight-based dosing when appropriate to reduce radiation dose to as low as reasonably achievable. Dictated by Andrew Brito MD @ Nov 26 2016 6:10PM (Electronic Signature) Report Signed by Proxy. ELYSSA
--- NOTE | 2016-11-27 14:06 | CT ---
EXAM DATE: 11/26/16 PATIENT'S AGE: 81 Patient: AWA CONTRERAS Facility: [place], [place] Site . Site : 1935 Study: CT Facial [id number]/30/2017 5:40:56 PM Ordering Physician: Doctor Zamora Final Report: Indication: Trauma. Technique: CT head: Performed without IV contrast. CT facial bones: Performed without IV contrast Comparison: None available. Findings: CT Head: No hemorrhage is identified. No cortical edema or ischemia is localized on this exam. No mass lesion or ventricular obstruction. Widespread areas of reduced attenuation in the cerebral white matter typical for advanced small vessel ischemic change. Moderate cerebral and trace cerebellar atrophy. The calvarium and skull base are unremarkable, with normal aeration of the visualized petrous temporal bones on both sides. CT facial bones: No facial bone fractures are identified. The mandible, maxilla , nasal bones and nasal spine, zygomatic bones and orbital rims are intact on both sides. No evidence for orbital hematoma. Impression: CT head: 1. No hemorrhage. 2. No evidence for brain contusion or fracture. 3 advanced small vessel ischemic change. Moderate cerebral atrophy. CT facial bones: No fractures are identified. Please note that all CT scans at this facility use dose modulation, iterative reconstruction, and/or weight-based dosing when appropriate to reduce radiation dose to as low as reasonably achievable. Dictated by Andrew Brito MD @ Nov 26 2016 6:00PM (Electronic Signature) Report Signed by Proxy. [facility]
--- NOTE | 2016-11-27 14:07 | CR ---
EXAM DATE: 11/26/16 PATIENT'S AGE: 81 Patient: AWA CONTRERAS Facility: [place], [place] Site . Site : 1935 Study: XRay Extremity Left [id number] forearm-11/26/2016 6:09:12 PM Ordering Physician: Bebeto Ramírez Final Report: INDICATION: Left wrist and arm pain TECHNIQUE: Two views left forearm COMPARISON: None FINDINGS: Bones: Alignment is normal. No fractures or bone lesions. Joint spaces: Degenerative changes radiocarpal joint and carpal joint space of the thumb. Soft tissues: Unremarkable. IMPRESSION: No evidence of acute trauma. Dictated by Vasile Ugarte MD @ 11/26/2016 6:23:27 PM Dictated by: Vasile Ugarte MD @ 11/26/2016 18:23:35 (Electronic Signature) Report Signed by Proxy. [facility]
--- NOTE | 2016-11-27 14:08 | CR ---
EXAM DATE: 11/26/16 PATIENT'S AGE: 81 Patient: AWA CONTRERAS Facility: [place], [place] Site . Site : 1935 Study: XRay Extremity Left [id number]/30/2017 6:10:11 PM Ordering Physician: Bebeto Ramírez Final Report: INDICATION: Pain TECHNIQUE: Two views left humerus COMPARISON: None FINDINGS: Bones: Alignment is normal. No fractures or bone lesions. Joint spaces: Unremarkable. Soft tissues: Unremarkable. IMPRESSION: Negative. Dictated by Vasile Ugarte MD @ 11/26/2016 6:24:53 PM Dictated by: Vasile Ugarte MD @ 11/26/2016 18:25:00 (Electronic Signature) Report Signed by Proxy. ELYSSA
--- NOTE | 2016-11-27 14:16 | CR ---
EXAM DATE: 11/26/16 PATIENT'S AGE: 81 Patient: AWA CONTRERAS Facility: [place], [place] Site . Site : 1935 Study: XRay Hip Left [id number]/30/2017 7:31:06 PM Ordering Physician: Bebeto Ramírez Final Report: INDICATION: Pain post fall TECHNIQUE: AP and lateral views of the left hip are submitted. COMPARISON: Pelvis dated 11/26/16 FINDINGS: Generalized osteopenia. No definite fractures are identified. Mild degenerative change in the left hip joint. IMPRESSION: Generalized osteopenia. Although a definite fracture is not identified, consider further evaluation with CT if the patient has persistent left hip pain. Dictated by Dirk Reyna MD @ 11/26/2016 8:25:03 PM Dictated by: Dirk Reyna MD @ 11/26/2016 20:29:17 (Electronic Signature) Report Signed by Proxy. MTDD
--- NOTE | 2016-11-27 19:20 | PCM.PN ---
- General Info Date of Service: 11/27/16 Admission Dx/Problem (Free Text): Subjective: Elyssa seems to be doing well according to her son who was in the room when I saw the patient today. She is still nonverbal however she is responding by blinking her eyes when asking her if she isn't any discomfort. Was making adequate urine via Casillas catheter. Provided that she does take adequate fluids we can possibly DC the Casillas. Overall though presently she is getting better from the standpoint of her sepsis. She had an elevated lactate level upon admission but that has now normalized and her WBC count is also trending downwards. She has been afebrile presently. She did have a mild hypotensive episode earlier in the morning however upon repeat assessment of her blood pressure had normalized. Functional Status: Reports: Pain Controlled - Review of Systems General: Reports: Weakness, Fatigue Musculoskeletal: Reports: Back Pain - Patient Data Vitals - Most Recent: Last Vital Signs Temp 36.2 C 11/27/16 16:00 Pulse 88 11/27/16 16:00 Resp 16 11/27/16 16:00 BP 122/60 11/27/16 16:00 Pulse Ox 93 L 11/27/16 16:00 Weight - Most Recent: 71 kg I&O - Last 24 Hours: Intake & Output 11/27/16 11/27/16 11/27/16 06:59 14:59 22:59 Intake Total 150 999 180 Output Total 1500 375 Balance -1350 999 -195 Lab Results Last 24 Hours: Laboratory Results - last 24 hr 11/26/16 11/27/16 11/27/16 Range/Units 21:57 04:15 04:15 WBC 14.61 H (4.0-11.0) K/uL RBC 3.56 L (4.30-5.90) M/uL Hgb 10.5 L (12.0-16.0) g/dL Hct 31.9 L (36.0-46.0) % MCV 89.6 (80.0-98.0) fL MCH 29.5 (27.0-32.0) pg MCHC 32.9 (31.0-37.0) g/dL RDW Std Deviation 49.0 (28.0-62.0) fl RDW Coeff of Maricel 15 (11.0-15.0) % Plt Count 263 (150-400) K/uL MPV 8.80 (7.40-12.00) fL Neut % (Auto) 77.2 (48.0-80.0) % Lymph % (Auto) 16.5 (16.0-40.0) % Haywood % (Auto) 5.8 (0.0-15.0) % Eos % (Auto) 0.4 (0.0-7.0) % Baso % (Auto) 0.1 (0.0-1.5) % Neut # (Auto) 11.3 H (1.4-5.7) K/uL Lymph # (Auto) 2.4 (0.6-2.4) K/uL Haywood # (Auto) 0.9 H (0.0-0.8) K/uL Eos # (Auto) 0.1 (0.0-0.7) K/uL Baso # (Auto) 0.0 (0.0-0.1) K/uL Nucleated RBC % 0.0 /100WBC Nucleated RBCs # 0 K/uL Lactate 2.1 H 1.1 (0.20-2.00) mmol/L Sodium (136-146) mmol/L Potassium (3.5-5.1) mmol/L Chloride (98-110) mmol/L Carbon Dioxide (21-31) mmol/L BUN (6.0-23.0) mg/dL Creatinine (0.6-1.5) mg/dL Est Cr Clr Drug Dosing mL/min Estimated GFR (MDRD) ml/min Glucose (60-110) mg/dL Calcium (8.8-10.8) mg/dL 11/27/16 Range/Units 04:15 WBC (4.0-11.0) K/uL RBC (4.30-5.90) M/uL Hgb (12.0-16.0) g/dL Hct (36.0-46.0) % MCV (80.0-98.0) fL MCH (27.0-32.0) pg MCHC (31.0-37.0) g/dL RDW Std Deviation (28.0-62.0) fl RDW Coeff of Maricel (11.0-15.0) % Plt Count (150-400) K/uL MPV (7.40-12.00) fL Neut % (Auto) (48.0-80.0) % Lymph % (Auto) (16.0-40.0) % Haywood % (Auto) (0.0-15.0) % Eos % (Auto) (0.0-7.0) % Baso % (Auto) (0.0-1.5) % Neut # (Auto) (1.4-5.7) K/uL Lymph # (Auto) (0.6-2.4) K/uL Haywood # (Auto) (0.0-0.8) K/uL Eos # (Auto) (0.0-0.7) K/uL Baso # (Auto) (0.0-0.1) K/uL Nucleated RBC % /100WBC Nucleated RBCs # K/uL Lactate (0.20-2.00) mmol/L Sodium 134 L (136-146) mmol/L Potassium 3.8 (3.5-5.1) mmol/L Chloride 102 (98-110) mmol/L Carbon Dioxide 23 (21-31) mmol/L BUN 15 (6.0-23.0) mg/dL Creatinine 0.8 (0.6-1.5) mg/dL Est Cr Clr Drug Dosing 39.61 mL/min Estimated GFR (MDRD) > 60.0 ml/min Glucose 89 (60-110) mg/dL Calcium 8.9 (8.8-10.8) mg/dL Benjie Results Last 24 Hours: Microbiology 11/26/16 18:59 Aerobic Blood Culture - Preliminary Blood - Venous NO GROWTH AFTER 1 DAY Anaerobic Blood Culture - Preliminary NO GROWTH AFTER 1 DAY Med Orders - Current: Current Medications Albuterol/Ipratropium (Duoneb 3.0-0.5 Mg/3 Ml) 3 ml NEB Q4HRRT [facility] Last Admin: 11/27/16 18:15 Dose: 3 ml Ceftriaxone Sodium/Dextrose 1 (gm/ Premix) 50 mls @ 100 mls/hr IV Q24H [facility] Sodium Chloride (Normal Saline) 1,000 mls @ 125 mls/hr IV ASDIRECTED [facility] Last Admin: 11/27/16 13:57 Dose: 125 mls/hr Levothyroxine Sodium (Synthroid) 75 mcg PO ACBREAKFAST [facility] Last Admin: 11/27/16 06:56 Dose: 75 mcg Prednisone (Prednisone) 20 mg PO DAILY [facility] Last Admin: 11/27/16 09:28 Dose: 20 mg Discontinued Medications Diphtheria/Tetanus/Acell Pertussis (Adacel) 0.5 ml IM .ONCE ONE Stop: 11/26/16 18:48 Last Admin: 11/26/16 20:28 Dose: 0.5 ml Hydromorphone HCl (Dilaudid) 0.5 mg IVPUSH ONETIME ONE Stop: 11/26/16 18:31 Last Admin: 11/26/16 19:01 Dose: 0.5 mg Sodium Chloride (Normal Saline) 250 mls @ 999 mls/hr IV STAT [facility] Ceftriaxone Sodium/Dextrose 1 (gm/ Premix) 50 mls @ 100 mls/hr IV ONETIME ONE Stop: 11/26/16 19:05 Last Admin: 11/26/16 20:05 Dose: 100 mls/hr Sodium Chloride (Normal Saline) 1,000 mls @ 999 mls/hr IV .Bolus ONE Stop: 11/26/16 19:58 Last Admin: 11/26/16 18:55 Dose: 250 mls/hr Levothyroxine Sodium (Synthroid) 50 mcg PO ACBREAKFAST [facility] - Exam General: No Acute Distress, Other (Patient is nonverbal nonmobile). No: Alert, Oriented HEENT: Pupils Equal, Pupils Reactive. No: EOMI Neck: Supple, Trachea Midline, No JVD, No Thyromegaly Lungs: Clear to Auscultation, Normal Respiratory Effort Cardiovascular: Regular Rate, Regular Rhythm. No: No Murmurs GI/Abdominal Exam: Normal Bowel Sounds, Soft, No Organomegaly, No Distention. No: Non-Tender, No Mass Back Exam: Decreased Range of Motion Extremities: Joint Swelling, Limited Range of Motion Skin: Warm, Intact - Problem List Review Problem List Initiated/Reviewed/Updated: Yes - Plan Plan:: 81 yo female admitted following fall with UTI and sepsis. At this point in time we will continue with the IV fluids 125 mL per hour, we will still continue to have the patient with the Casillas catheter up until we feel that she is taking adequate by mouth. We will continue with the Rocephin and continue to monitor the patient's vital signs as well as laboratory data. Patient is DNR/DNI.
[2016-11-27] MEDS ORDERED: cefTRIAXone 1 GM in Premix Bag 1 BAG IV SCH (21:00)
[2016-11-27] MEDS ORDERED: cefTRIAXone 1,000 MG VIAL IVPUSH SCH (21:45)
[2016-11-28] MEDS: Albuterol/Ipratropium 3.0-0.5 MG/3 ML Neb Soln NEB SCH ×3 (02:11→09:37)
[2016-11-28 05:31] LABS: CHLORIDE,CL 110 mmol/L (98-110); SODIUM,NA 140 mmol/L (136-146)
[2016-11-28] MEDS: Levothyroxine 50 MCG Tab PO SCH (06:37)
[2016-11-28] MEDS: Sodium Chloride 0.9% 1,000 ML IV SCH (06:43)
[2016-11-28] MEDS: predniSONE 20 MG Tab PO SCH (08:32)
[2016-11-28 13:06] VITALS: BP 114/36
--- NOTE | 2016-11-29 21:50 | PCM.DCSUM1 ---
Discharge Summary - Hospital Course Free Text/Narrative:: Admitting diagnose: #1. Traumatic injury secondary to fall at half-way rule out traumatic fractures #2. Elevated lactic acid level and elevated WBC and UA with nitrates and bacteria secondary to UTI-induced sepsis #3. Nonverbal non-mobile vision with history of MS with fatigue/febrile secondary to acute illness Discharge diagnosis #1. UTI secondary to Klebsiella pneumonia now resolving #2. Fall no fractures seen after imaging. #3. Patient has history of MS, primarily nonverbal non-mobile Consultations: None Procedures: None Hospitalization course: Patient was admitted secondary to fall from [facility]. She was also noticed to have weakness fatigue and febrile issues. Upon admission patient was noted to have an elevated temperature and increased white count and an abnormal UA 0.8 to a bacteremia. As such the patient was then put on Rocephin for coverage. Required oxygen support along with DuoNeb's and continuation of some of her home medications. Of admission to the date of discharge the patient progressively got better by November 28 the patient was slightly verbal seemed to be much more responsive and stable. WBC count had decreased patient did not have any further episodes of fever and was no longer requiring oxygen for support. On 11/27 urinary catheter was removed as it was determined that the patient was getting enough fluids and having proper and appropriate input and output. Disposition on discharge: [facility] Condition on discharge: She was afebrile not requiring oxygen support, able to take good by mouth and as well was able to urinate without difficulties. Medications on discharge: Continuation of patient's home medication along with cefdinir. - Discharge Data Discharge Date: 11/28/16 Discharge Disposition: DC/Tfer to Medicaid N[facility] Condition: Fair - Discharge Diagnosis/Problem(s) (1) COPD (chronic obstructive pulmonary disease) SNOMED Code(s): 68207850 ICD Code: J44.9 - CHRONIC OBSTRUCTIVE PULMONARY DISEASE, UNSPECIFIED Status : Acute Priority: High Qualifiers: COPD type: chronic bronchitis Chronic bronchitis type: mixed simple and mucopurulent Qualified Code(s): J41.8 - Mixed simple and mucopurulent chronic bronchitis (2) Sepsis SNOMED Code(s): 40381747 ICD Code: A41.9 - SEPSIS, UNSPECIFIED ORGANISM Status: Acute (3) UTI (urinary tract infection) SNOMED Code(s): 34018065 ICD Code: N39.0 - URINARY TRACT INFECTION, SITE NOT SPECIFIED Status: Acute Priority: High (4) Altered mental status, unspecified SNOMED Code(s): 038581512 ICD Code: R41.82 - ALTERED MENTAL STATUS, UNSPECIFIED Status: Chronic Priority: Medium - Patient Instructions Diet: Regular Diet as Tolerated Activity: As Tolerated Showering/Bathing: May Shower Notify Provider of: Fever, Increased Pain, Swelling and Redness, Drainage, Nausea and/or Vomiting Other/Special Instructions: PT/OT to evaluate and treat - Discharge Plan Prescriptions/Med Rec: Cefdinir 300 mg PO BID #16 capsule fentaNYL [Duragesic] 12 mcg TRDERM Q72H #10 patch traMADol [Ultram] 50 mg PO Q8H PRN #15 tablet PRN Reason: Pain (Moderate 4-6) Home Medications: Home Meds Cholestyramine/Aspartame [Questran Light Powder] 4 gm PO DAILY 03/29/16 [History ] Cyanocobalamin (Vitamin B12) [Vitamin B12] 1,000 mcg PO DAILY 03/29/16 [History] FLUoxetine [PROzac] 40 mg PO DAILY 03/29/16 [History] Ibuprofen [Motrin] 200 mg PO Q6H PRN 03/29/16 [History] Lisinopril 20 mg PO DAILY 03/29/16 [History] Loratadine 10 mg PO DAILY PRN 03/29/16 [History] Multivitamin [Multivitamins] 1 tab PO DAILY 03/29/16 [History] amLODIPine Besylate [Norvasc] 2.5 mg PO DAILY 03/29/16 [History] Donepezil [Aricept] 10 mg PO BEDTIME tablet 09/30/16 [Rx] Folic Acid 1 mg PO BEDTIME tablet 09/30/16 [Rx] Mirtazapine [Remeron] 45 mg PO BEDTIME tablet 09/30/16 [Rx] Prednisone [IJD: predniSONE] 20 mg PO DAILY tablet 09/30/16 [Rx] Modafinil [Provigil] 100 mg PO BID 11/26/16 [History] Albuterol [IJD: Albuterol] 2.5 mg NEB Q6H PRN 11/27/16 [History] Hydrocortisone [Hydrocortisone 2.5% Crm] 1 applic TOP Q24H PRN 11/27/16 [History ] Levothyroxine [Synthroid] 50 mcg PO ACBREAKFAST 11/27/16 [History] Levothyroxine [Synthroid] 75 mcg PO ACBREAKFAST 11/27/16 [History] Nystatin [Nystatin Crm] 1 applic TOP BEDTIME 11/27/16 [History] Cefdinir 300 mg PO BID #16 capsule 11/28/16 [Rx] fentaNYL [Duragesic] 12 mcg TRDERM Q72H #10 patch 11/28/16 [Rx] traMADol [Ultram] 50 mg PO Q8H PRN #15 tablet 11/28/16 [Rx] Patient Handouts: Cefdinir capsules, Urinary Tract Infection, Adult, Easy-to- Read, Sepsis, Adult Referrals: Dimitri Martinez MD [Physician] - 12/07/16 (Hospital follow up on next Luigi rounds) - Discharge Summary/Plan Comment DC Time >30 min.: No - Patient Data Vitals - Most Recent: Last Vital Signs Temp 37.0 C 11/28/16 12:00 Pulse 111 H 11/28/16 12:00 Resp 18 11/28/16 12:00 BP 114/36 L 11/28/16 12:00 Pulse Ox 98 11/28/16 12:00 Weight - Most Recent: 71 kg TUYET Results - Last 24 hrs: Microbiology 11/26/16 19:30 Aerobic Blood Culture - Preliminary Blood - Arm, Left NO GROWTH AFTER 3 DAYS Anaerobic Blood Culture - Preliminary NO GROWTH AFTER 3 DAYS 11/26/16 18:59 Aerobic Blood Culture - Preliminary Blood - Venous NO GROWTH AFTER 3 DAYS Anaerobic Blood Culture - Preliminary NO GROWTH AFTER 3 DAYS Med Orders - Current: Current Medications Discontinued Medications Albuterol/Ipratropium (Duoneb 3.0-0.5 Mg/3 Ml) 3 ml NEB Q4HRRT [facility] Last Admin: 11/28/16 09:37 Dose: 3 ml Diphtheria/Tetanus/Acell Pertussis (Adacel) 0.5 ml IM .ONCE ONE Stop: 11/26/16 18:48 Last Admin: 11/26/16 20:28 Dose: 0.5 ml Hydromorphone HCl (Dilaudid) 0.5 mg IVPUSH ONETIME ONE Stop: 11/26/16 18:31 Last Admin: 07/30/17 19:01 Dose: 0.5 mg Sodium Chloride (Normal Saline) 250 mls @ 999 mls/hr IV STAT [facility] Ceftriaxone Sodium/Dextrose 1 (gm/ Premix) 50 mls @ 100 mls/hr IV ONETIME ONE Stop: 11/26/16 19:05 Last Admin: 11/26/16 20:05 Dose: 100 mls/hr Sodium Chloride (Normal Saline) 1,000 mls @ 999 mls/hr IV .Bolus ONE Stop: 11/26/16 19:58 Last Admin: 11/26/16 18:55 Dose: 250 mls/hr Ceftriaxone Sodium/Dextrose 1 (gm/ Premix) 50 mls @ 100 mls/hr IV Q24H [facility] Last Infusion: 11/27/16 22:45 Dose: Infused Sodium Chloride (Normal Saline) 1,000 mls @ 125 mls/hr IV ASDIRECTED [facility] Last Admin: 11/28/16 06:43 Dose: 125 mls/hr Levothyroxine Sodium (Synthroid) 50 mcg PO ACBREAKFAST [facility] Levothyroxine Sodium (Synthroid) 75 mcg PO ACBREAKFAST [facility] Last Admin: 11/28/16 06:37 Dose: 75 mcg Prednisone (Prednisone) 20 mg PO DAILY [facility] Last Admin: 11/28/16 08:32 Dose: 20 mg *Q Meaningful Use (DIS) - VTE *Q VTE Criteria *Q: - Stroke *Q Stroke Criteria *Q: - AMI *Q AMI Criteria *Q:
== END 2016-11-28 13:00 | DRG 872 ==
LOC: MW.ED 15:32 → MW.MS 18:56
PROVIDERS: ADMIT Internal Medicine; ATTEND Internal Medicine
DX: A41.9 Sepsis, unspecified organism (principal); N30.01 Acute cystitis with hematuria; E87.1 Hypo-osmolality and hyponatremia; G35 Multiple sclerosis; S01.411A Laceration without foreign body of right cheek and temporomandibular area, initial encounter; W08.XXXA Fall from other furniture, initial encounter; Y92.122 Bedroom in nursing home as the place of occurrence of the external cause; E78.00 Pure hypercholesterolemia, unspecified; I10 Essential (primary) hypertension; K21.9 Gastro-esophageal reflux disease without esophagitis; I73.00 Raynaud's syndrome without gangrene; M35.3 Polymyalgia rheumatica; F03.90 Unspecified dementia, unspecified severity, without behavioral disturbance, psychotic disturbance, mood disturbance, and anxiety; F32.9 Major depressive disorder, single episode, unspecified; E03.9 Hypothyroidism, unspecified; Z79.899 Other long term (current) drug therapy; Z51.5 Encounter for palliative care; Z88.8 Allergy status to other drugs, medicaments and biological substances; Z66 Do not resuscitate
CPT/HCPCS: 36415; 70450; 70486; 71010; 72125; 72170; 73060; 73090; 80053; 81001; 83605; 84484; 85025; 87086; 87186; 90471; 96361; 99285; J7040; 73502-26-LT; 73502-LT; 80048; 87040; 87088; 90715; 93005; 94640; 96365; 96375; 99284; A9270-GY; J0696; J1170

== ENCOUNTER 2017-09-24 12:04 | Emergency (ER) | payer MEDICARE, MEDICAID ==
[2017-09-24] MEDS ORDERED: Sodium Chloride 0.9% 10 ML Syringe FLUSH PRN (12:44)
[2017-09-24] MEDS ORDERED: Sodium Chloride 0.9% 2.5 ML Syringe FLUSH PRN (12:44)
--- NOTE | 2017-09-24 12:54 | EDM.PDOC ---
ED HPI GENERAL MEDICAL PROBLEM - General Chief Complaint: Genitourinary Problem Stated Complaint: POSSIBLE UTI Time Seen by Provider: 09/24/17 12:34 - History of Present Illness INITIAL COMMENTS - FREE TEXT/NARRATIVE: HISTORY AND PHYSICAL: History of present illness: The patient is an 82-year-old female who resides at [facility] and comes for evaluation of decreased activity and "wilting" by the son. He sees her and spends time with her every single day and he says that he has noticed over the last 2 days she has been less interactive with him and he is concerned about an infection. She has had an extensive history of urinary tract infections urosepsis and sepsis in general as well as hypertension hypothyroidism depression Alzheimer's hyperlipidemia and COPD and she has multiple sclerosis and is currently nonverbal except for a few words and knotting. The son says that about 2 weeks ago he noticed a wound on her foot and he does not feel it was addressed quickly and now there is issues with the toenails and she is scheduled to see the surtass analyst this week. She was not placed on any antibiotics. He is concerned that this toe/foot wound may be contributing to her current symptomatology. He also says that over the last 2 days she has not been eating very much and she has not been speaking a few words that she does speak and she has been slow to respond to him and this is the usual cue that she has an infection. She has not had coughing and he says that she never mounted a fever due to her long-standing history of prednisone use. She is not vomiting and the report from [facility] is sketchy and the son provides more in-depth information. He says he cannot pinpoint what exactly is wrong but he says that this is how her infections and sepsis have presented in the past. Patient is a code 3 status Review of systems: As per history of present illness and below otherwise all systems reviewed and negative. Past medical history: As per history of present illness and as reviewed below otherwise noncontributory. Surgical history: As per history of present illness and as reviewed below otherwise noncontributory. Social history: No reported history of drug or alcohol abuse. Family history: As per history of present illness and as reviewed below otherwise noncontributory. Physical exam: General: Well-developed well-nourished female who exhibits contractures throughout her body and is exhibiting small amount of movement of her right upper extremity but limited movement of her lower extremities and she has nonverbal. She will blink one time if she answers a question yes. HEENT: Atraumatic, normocephalic, pupils reactive, negative for conjunctival pallor or scleral icterus, mucous membranes moist, throat clear, neck supple, nontender, trachea midline. Lungs: Clear to auscultation diminished breath sounds and poor effort but there is no work of breathing stridor or wheezing, breath sounds equal bilaterally, chest nontender. Heart: S1S2, regular rate and rhythm and there is a loud systolic ejection murmur heard at the left sternal border Abdomen: Soft, nondistended, nontender. NABS Pelvis: Stable nontender. Genitourinary: Deferred. Rectal: Deferred. Extremities: Atraumatic, negative for cords or calf pain. Neurovascular unremarkable. At the right foot there is erythema and some skin breakdown at the medial aspect of the right second toe with some erythema of that toe but no streaking up the foot and no other soft tissue swelling area there is no crepitus or fluctuance appreciated. Neuro: Patient is nonverbal but when the son speaks to her and asked questions she will blink once for yes. She has contractures throughout all extremities with limited movement of her right upper extremity all of which the son says is at her baseline. Diagnostics: CBC CMP lactic acid UA urine culture blood cultures chest x-ray right second toe x-ray Therapeutics: IV O2 monitor IV fluids Rocephin All x-rays and lab tests were discussed with the son and patient at bedside. After IV fluids he thinks she looks much improved and I agree with him. When I asked the patient and the son about observation admission versus going back to [place] the patient truly does want to go back to [place] if that is possible. 1501: Case was discussed with Dr. Douglass our hospitalist, more specifically the x -ray findings. Clinically the soft tissue looks like there is some cellulitis but it is certainly not extensive or comprehensive. The son tells me that this has improved and it did look worse about a week or so ago. I discussed the x- ray results extensively with the son and told him that I would be happy to admit the patient for the suspicion of osteomyelitis but she would probably need more testing to confirm this and as they have an appointment with podiatry this week he feels comfortable giving a dose of antibiotics here sending her out to [place] with antibiotics for the skin infection and then pursuing the possibility of osteomyelitis with the surtass analyst. Dr. Douglass feels that this is also a reasonable plan Impression: Generalized weakness/lethargy improving, clinical dehydration, right second toe cellulitis Definitive disposition and diagnosis as appropriate pending reevaluation and review of above. - Related Data Allergies Allergy/AdvReac Type Severity Reaction Status Date / Time baclofen Allergy Other Verified 09/24/17 14:57 celecoxib [From Celebrex] Allergy Other Verified 09/24/17 14:57 propoxyphene Allergy Other Verified 09/24/17 14:57 sulfamethoxazole Allergy Other Verified 09/24/17 14:57 [From Septra] trimethoprim [From Septra] Allergy Other Verified 09/24/17 14:57 Home Meds: Home Meds Cholestyramine/Aspartame [Questran Light Powder] 4 gm PO DAILY 03/29/16 [History ] Cyanocobalamin (Vitamin B12) [Vitamin B12] 1,000 mcg PO DAILY 03/29/16 [History] FLUoxetine [PROzac] 40 mg PO DAILY 03/29/16 [History] Ibuprofen [Motrin] 200 mg PO Q6H PRN 03/29/16 [History] Lisinopril 20 mg PO DAILY 03/29/16 [History] Loratadine 10 mg PO DAILY PRN 03/29/16 [History] Multivitamin [Multivitamins] 1 tab PO DAILY 03/29/16 [History] amLODIPine Besylate [Norvasc] 2.5 mg PO DAILY 03/29/16 [History] Donepezil [Aricept] 10 mg PO BEDTIME tablet 09/30/16 [Rx] Folic Acid 1 mg PO BEDTIME tablet 09/30/16 [Rx] Mirtazapine [Remeron] 45 mg PO BEDTIME tablet 09/30/16 [Rx] Prednisone [IJD: predniSONE] 20 mg PO DAILY tablet 09/30/16 [Rx] Modafinil [Provigil] 100 mg PO BID 11/26/16 [History] Albuterol [IJD: Albuterol] 2.5 mg NEB Q6H PRN 11/27/16 [History] Hydrocortisone [Hydrocortisone 2.5% Crm] 1 applic TOP Q24H PRN 11/27/16 [History ] Levothyroxine [Synthroid] 50 mcg PO ACBREAKFAST 11/27/16 [History] Levothyroxine [Synthroid] 75 mcg PO ACBREAKFAST 11/27/16 [History] Nystatin [Nystatin Crm] 1 applic TOP BEDTIME 11/27/16 [History] Cefdinir 300 mg PO BID #16 capsule 11/28/16 [Rx] fentaNYL [Duragesic] 12 mcg TRDERM Q72H #10 patch 11/28/16 [Rx] traMADol [Ultram] 50 mg PO Q8H PRN #15 tablet 11/28/16 [Rx] Past Medical History HEENT History: Reports: Impaired Vision Cardiovascular History: Reports: High Cholesterol, Hypertension Other Cardiovascular History: raynauds Respiratory History: Reports: COPD Gastrointestinal History: Reports: GERD Genitourinary History: Reports: UTI, Recurrent [employer] History: Reports: Musculoskeletal History: Reports: Arthritis, Fibromyalgia, Other (See Below) Other Musculoskeletal History: polymyalgia rheumatica, MS Neurological History: Reports: MS Psychiatric History: Reports: Dementia, Depression Endocrine/Metabolic History: Reports: Hypothyroidism Hematologic History: Reports: None Immunologic History: Reports: None Oncologic (Cancer) History: Reports: None Dermatologic History: Reports: None - Infectious Disease History Infectious Disease History: Reports: None - Past Surgical History Cardiovascular Surgical History: Reports: None Respiratory Surgical History: Reports: None Female Surgical History: Reports: None Oncologic Surgical History: Reports: None Social & Family History - Family History Family Medical History: Noncontributory - Caffeine Use Caffeine Use: Reports: Coffee - Living Situation & Occupation Living situation: Reports: Extended Care Facility ED ROS GENERAL - Review of Systems Review Of Systems: ROS reveals no pertinent complaints other than HPI. ED EXAM, GENERAL - Physical Exam Exam: See Below (See dictation) Course - Vital Signs Last Recorded V/S: Last Vital Signs Temp 36.4 C 09/24/17 12:32 Pulse 82 09/24/17 12:32 Resp 18 09/24/17 12:32 BP 96/50 L 09/24/17 12:32 Pulse Ox 97 09/24/17 12:32 - Orders/Labs/Meds Orders: Active Orders 24 hr Category Date Time Status Blood Glucose Check, Bedside [RC] ONETIME Care 09/24/17 12:44 Active Cardiac Monitoring [RC] . DIRECTED Care 09/24/17 12:44 Active Oxygen Therapy, ED [RC] ASDIRECTED Care 09/24/17 12:44 Active Pulse Oximetry [RC] ASDIRECTED Care 09/24/17 12:44 Active Chest 1V Frontal [CR] Stat Exams 09/24/17 12:44 Taken Toes Second Digit Rt T6 [CR] Stat Exams 09/24/17 13:52 Taken CULTURE BLOOD [BC] Stat Lab 09/24/17 13:00 Results CULTURE BLOOD [BC] Stat Lab 09/24/17 13:45 Results CULTURE URINE [RM] Stat Lab 09/24/17 13:58 Received UA W/MICROSCOPIC [URIN] Stat Lab 09/24/17 13:58 Ordered Sodium Chloride 0.9% [Normal Saline] 1,000 ml Med 09/24/17 14:00 Active IV ASDIRECTED Sodium Chloride 0.9% [Saline Flush] Med 09/24/17 12:44 Active 10 ml FLUSH ASDIRECTED PRN Sodium Chloride 0.9% [Saline Flush] Med 09/24/17 12:44 Active 2.5 ml FLUSH ASDIRECTED PRN cefTRIAXone [Rocephin in Dextrose,Iso-Osm 1 GM/50 ML] 1 Med 09/24/17 14:53 Active gm Premix Bag 1 bag IV ONETIME Blood Culture x2 Reflex Set [OM.PC] Stat Oth 09/24/17 12:45 Ordered Saline Lock Insert [OM.PC] Stat Oth 09/24/17 12:44 Ordered Medication Orders Sodium Chloride (Normal Saline) 1,000 mls @ 83 mls/hr IV ASDIRECTED WILBUR Last Infusion: 09/24/17 14:52 Dose: 999 mls/hr Infusion: 09/24/17 14:30 Dose: 83 mls/hr Admin: 09/24/17 14:15 Dose: 999 mls/hr Ceftriaxone Sodium/Dextrose 1 (gm/ Premix) 50 mls @ 100 mls/hr IV ONETIME ONE Stop: 09/24/17 15:22 Sodium Chloride (Saline Flush) 10 ml FLUSH ASDIRECTED PRN PRN Reason: Keep Vein Open Sodium Chloride (Saline Flush) 2.5 ml FLUSH ASDIRECTED PRN PRN Reason: Keep Vein Open Labs: Laboratory Tests 09/24/17 09/24/17 09/24/17 Range/Units 13:00 13:00 13:00 WBC 9.70 (4.0-11.0) K/uL RBC 4.05 L (4.30-5.90) M/uL Hgb 12.1 (12.0-16.0) g/dL Hct 36.0 (36.0-46.0) % MCV 88.9 (80.0-98.0) fL MCH 29.9 (27.0-32.0) pg MCHC 33.6 (31.0-37.0) g/dL RDW Std Deviation 45.5 (28.0-62.0) fl RDW Coeff of Maricel 14 (11.0-15.0) % Plt Count 279 (150-400) K/uL MPV 9.30 (7.40-12.00) fL Neut % (Auto) 90.3 H (48.0-80.0) % Lymph % (Auto) 7.3 L (16.0-40.0) % White % (Auto) 2.2 (0.0-15.0) % Eos % (Auto) 0.1 (0.0-7.0) % Baso % (Auto) 0.1 (0.0-1.5) % Neut # (Auto) 8.8 H (1.4-5.7) K/uL Lymph # (Auto) 0.7 (0.6-2.4) K/uL White # (Auto) 0.2 (0.0-0.8) K/uL Eos # (Auto) 0.0 (0.0-0.7) K/uL Baso # (Auto) 0.0 (0.0-0.1) K/uL Nucleated RBC % 0.0 /100WBC Nucleated RBCs # 0 K/uL Lactate 1.9 (0.20-2.00) mmol/L Sodium 130 L (136-145) mmol/L Potassium 4.4 (3.5-5.1) mmol/L Chloride 95 L (98-107) mmol/L Carbon Dioxide 27.1 (21.0-32.0) mmol/L BUN 13 (7.0-18.0) mg/dL Creatinine 0.8 (0.6-1.0) mg/dL Est Cr Clr Drug Dosing 38.94 mL/min Estimated GFR (MDRD) > 60.0 ml/min Glucose 130 H (74-106) mg/dL POC Glucose (60-110) mg/dL Calcium 8.9 (8.5-10.1) mg/dL Total Bilirubin 0.3 (0.2-1.0) mg/dL AST 22 (15-37) IU/L ALT 29 (14-63) IU/L Alkaline Phosphatase 81 (46-116) U/L Total Protein 6.3 L (6.4-8.2) g/dL Albumin 3.3 L (3.4-5.0) g/dL Globulin 3.0 (2.0-3.5) g/dL Albumin/Globulin Ratio 1.1 L (1.3-2.8) Urine Color Urine Appearance Urine pH (5.0-8.0) Ur Specific [place] (1.001-1.035) Urine Protein (NEGATIVE) mg/dL Urine Glucose (UA) (NEGATIVE) mg/dL Urine Ketones (NEGATIVE) mg/dL Urine Occult Blood (NEGATIVE) Urine Nitrite (NEGATIVE) Urine Bilirubin (NEGATIVE) Urine Urobilinogen (<2.0) EU/dL Ur Leukocyte Esterase (NEGATIVE) Urine RBC (0-2/HPF) Urine WBC (0-5/HPF) Ur Epithelial Cells (NONE-FEW) Urine Bacteria (NEGATIVE) 09/24/17 09/24/17 Range/Units 13:49 13:58 WBC (4.0-11.0) K/uL RBC (4.30-5.90) M/uL Hgb (12.0-16.0) g/dL Hct (36.0-46.0) % MCV (80.0-98.0) fL MCH (27.0-32.0) pg MCHC (31.0-37.0) g/dL RDW Std Deviation (28.0-62.0) fl RDW Coeff of Maricel (11.0-15.0) % Plt Count (150-400) K/uL MPV (7.40-12.00) fL Neut % (Auto) (48.0-80.0) % Lymph % (Auto) (16.0-40.0) % White % (Auto) (0.0-15.0) % Eos % (Auto) (0.0-7.0) % Baso % (Auto) (0.0-1.5) % Neut # (Auto) (1.4-5.7) K/uL Lymph # (Auto) (0.6-2.4) K/uL White # (Auto) (0.0-0.8) K/uL Eos # (Auto) (0.0-0.7) K/uL Baso # (Auto) (0.0-0.1) K/uL Nucleated RBC % /100WBC Nucleated RBCs # K/uL Lactate (0.20-2.00) mmol/L Sodium (136-145) mmol/L Potassium (3.5-5.1) mmol/L Chloride (98-107) mmol/L Carbon Dioxide (21.0-32.0) mmol/L BUN (7.0-18.0) mg/dL Creatinine (0.6-1.0) mg/dL Est Cr Clr Drug Dosing mL/min Estimated GFR (MDRD) ml/min Glucose (74-106) mg/dL POC Glucose 135 H (60-110) mg/dL Calcium (8.5-10.1) mg/dL Total Bilirubin (0.2-1.0) mg/dL AST (15-37) IU/L ALT (14-63) IU/L Alkaline Phosphatase (46-116) U/L Total Protein (6.4-8.2) g/dL Albumin (3.4-5.0) g/dL Globulin (2.0-3.5) g/dL Albumin/Globulin Ratio (1.3-2.8) Urine Color YELLOW Urine Appearance CLEAR Urine pH 5.5 (5.0-8.0) Ur Specific [place] 1.010 (1.001-1.035) Urine Protein NEGATIVE (NEGATIVE) mg/dL Urine Glucose (UA) NEGATIVE (NEGATIVE) mg/dL Urine Ketones NEGATIVE (NEGATIVE) mg/dL Urine Occult Blood SMALL H (NEGATIVE) Urine Nitrite NEGATIVE (NEGATIVE) Urine Bilirubin NEGATIVE (NEGATIVE) Urine Urobilinogen 0.2 (<2.0) EU/dL Ur Leukocyte Esterase NEGATIVE (NEGATIVE) Urine RBC 1-3 (0-2/HPF) Urine WBC 0-2 (0-5/HPF) Ur Epithelial Cells OCCASIONAL (NONE-FEW) Urine Bacteria FEW (NEGATIVE) Meds: Medications Generic Name Dose Route Start Last Admin Trade Name Jo PRN Reason Stop Dose Admin Sodium Chloride 1,000 mls @ 83 mls/hr 09/24/17 14:00 09/24/17 14:52 Normal Saline IV 999 mls/hr ASDIRECTED WILBUR Infusion Ceftriaxone Sodium/Dextrose 1 50 mls @ 100 mls/hr 09/24/17 14:53 gm/ Premix IV 09/24/17 15:22 ONETIME ONE Sodium Chloride 10 ml 09/24/17 12:44 Saline Flush FLUSH ASDIRECTED PRN Keep Vein Open Sodium Chloride 2.5 ml 09/24/17 12:44 Saline Flush FLUSH ASDIRECTED PRN Keep Vein Open Departure - Departure Time of Disposition: 15:06 Disposition: Home, Self-Care 01 Condition: Good Clinical Impression: Cellulitis of toe of right foot, Generalized weakness, Dehydration - Discharge Information Referrals: PCP,None [Primary Care Provider] - Forms: ED Department Discharge Additional Instructions: The following information is given to patients seen in the emergency department who are being discharged to home. This information is to outline your options for follow-up care. We provide all patients seen in our emergency department with a follow-up referral. The need for follow-up, as well as the timing and circumstances, are variable depending upon the specifics of your emergency department visit. If you don't have a primary care physician on staff, we will provide you with a referral. We always advise you to contact your personal physician following an emergency department visit to inform them of the circumstance of the visit and for follow-up with them and/or the need for any referrals to a consulting specialist. The emergency department will also refer you to a specialist when appropriate. This referral assures that you have the opportunity for followup care with a specialist. All of these measure are taken in an effort to provide you with optimal care, which includes your followup. Under all circumstances we always encourage you to contact your private physician who remains a resource for coordinating your care. When calling for followup care, please make the office aware that this follow-up is from your recent emergency room visit. If for any reason you are refused follow-up, please contact the [facility] emergency department at and ask to speak to the emergency department charge nurse. [facility] [address] [place] [address] [facility]- Podiatry [address] [place] [address] Fax: [phone] Please keep your appointment this week with a surtass analyst to explore the findings on x-ray that we found today further evaluate the soft tissue infection. Please start antibiotics you have been prescribed today on Sunday. Please push hydration and continue home meds. Return to ER as needed and as discussed - My Orders Last 24 Hours: My Active Orders 09/24/17 12:44 Blood Glucose Check, Bedside [RC] ONETIME Cardiac Monitoring [RC] . DIRECTED Oxygen Therapy, ED [RC] ASDIRECTED Pulse Oximetry [RC] ASDIRECTED Chest 1V Frontal [CR] Stat Sodium Chloride 0.9% [Saline Flush] 10 ml FLUSH ASDIRECTED PRN Sodium Chloride 0.9% [Saline Flush] 2.5 ml FLUSH ASDIRECTED PRN Saline Lock Insert [OM.PC] Stat 09/24/17 12:45 Blood Culture x2 Reflex Set [OM.PC] Stat 09/24/17 13:00 CULTURE BLOOD [BC] Stat 09/24/17 13:45 CULTURE BLOOD [BC] Stat 09/24/17 13:52 Toes Second Digit Rt T6 [CR] Stat 09/24/17 13:58 CULTURE URINE [RM] Stat UA W/MICROSCOPIC [URIN] Stat 09/24/17 14:00 Sodium Chloride 0.9% [Normal Saline] 1,000 ml IV ASDIRECTED 09/24/17 14:53 cefTRIAXone [Rocephin in Dextrose,Iso-Osm 1 GM/50 ML] 1 gm Premix Bag 1 bag IV ONETIME - Assessment/Plan Last 24 Hours: My Active Orders 09/24/17 12:44 Blood Glucose Check, Bedside [RC] ONETIME Cardiac Monitoring [RC] . DIRECTED Oxygen Therapy, ED [RC] ASDIRECTED Pulse Oximetry [RC] ASDIRECTED Chest 1V Frontal [CR] Stat Sodium Chloride 0.9% [Saline Flush] 10 ml FLUSH ASDIRECTED PRN Sodium Chloride 0.9% [Saline Flush] 2.5 ml FLUSH ASDIRECTED PRN Saline Lock Insert [OM.PC] Stat 09/24/17 12:45 Blood Culture x2 Reflex Set [OM.PC] Stat 09/24/17 13:00 CULTURE BLOOD [BC] Stat 09/24/17 13:45 CULTURE BLOOD [BC] Stat 09/24/17 13:52 Toes Second Digit Rt T6 [CR] Stat 09/24/17 13:58 CULTURE URINE [RM] Stat UA W/MICROSCOPIC [URIN] Stat 09/24/17 14:00 Sodium Chloride 0.9% [Normal Saline] 1,000 ml IV ASDIRECTED 09/24/17 14:53 cefTRIAXone [Rocephin in Dextrose,Iso-Osm 1 GM/50 ML] 1 gm Premix Bag 1 bag IV ONETIME
[2017-09-24 13:49] LABS: CHLORIDE,CL 95 mmol/L (98-107); SODIUM,NA 130 mmol/L (136-145)
[2017-09-24] MEDS ORDERED: Sodium Chloride 0.9% 1,000 ML IV SCH (14:00)
[2017-09-24] MEDS ORDERED: cefTRIAXone 1 GM in Premix Bag 1 BAG IV ONE (14:53)
[2017-09-24 19:23] VITALS: BP 115/59
--- NOTE | 2017-09-25 14:31 | CR ---
EXAM DATE: 09/24/17 PATIENT'S AGE: 82 Patient: AWA CONTRERAS Facility: [place], [place] Site . Site : 1935 Study: XRay Chest [id number]/28/2018 2:20:06 PM Ordering Physician: Josie Jonas Final Report: Indication: Shortness of breath Technique: Portable chest x-ray Comparison: No comparison studies are available. Significant Thoracic scoliosis. Aorta is tortuous. Cardiac mediastinal silhouette is within normal limits. Low lung volumes.Right basilar curvilinear atelectasis or scarring. Left basilar atelectasis. No effusion or pneumothorax. No acute airspace or interstitial process. Dictated by Fabiana Santos MD @ Sep 24 2017 2:33PM (Electronic Signature) Report Signed by Proxy. [facility]
--- NOTE | 2017-09-25 14:32 | CR ---
EXAM DATE: 09/24/17 PATIENT'S AGE: 82 Patient: AWA CONTRERAS Facility: [place], [place] Site . Site : 1935 Study: XRay Extremity Right 2nd toe [id number]/28/[id number] 2:21:10 PM Ordering Physician: Josie Jonas Final Report: Redness oozing Osteo Three-views of the right 2nd toe. FINDINGS: There is diffuse soft tissue swelling. There is patchy osteopenia. Erosive change involving the medial aspect of the 2nd proximal phalanx. No acute fractures seen. Lateral view demonstrates right lucency long the plantar aspect of the 1st proximal phalanx which may be projectional or possibly related to soft tissues gas. Impression : 1. Erosive change involving the medial distal aspect of the 2nd proximal phalanx suspicious for osteomyelitis. 2. Lateral view demonstrates lucency projected over the plantar aspect of 1st proximal phalanx which may be projectional or possibly due to soft tissue gas. Dictated by Fabiana Santos MD @ Sep 24 2017 2:35PM (Electronic Signature) Report Signed by Proxy. [facility]
== END 2017-09-24 16:26 | disposition home or self-care (01) ==
LOC: MW.ED 12:04
DX: E86.0 Dehydration (principal); L03.031 Cellulitis of right toe; R53.1 Weakness; E78.00 Pure hypercholesterolemia, unspecified; I10 Essential (primary) hypertension; J44.9 Chronic obstructive pulmonary disease, unspecified; Z87.440 Personal history of urinary (tract) infections; E03.9 Hypothyroidism, unspecified; Z88.8 Allergy status to other drugs, medicaments and biological substances; Z88.2 Allergy status to sulfonamides; Z79.899 Other long term (current) drug therapy
CPT/HCPCS: 36415; 71045; 73660; 80053; 81001; 82962; 83605; 85025; 87040; 87086; 96361; 96365; 99285; J0696; J7040

== ENCOUNTER 2017-11-13 09:27 | Emergency (ER) | payer MEDICARE, MEDICAID ==
[2017-11-13] MEDS ORDERED: Sodium Chloride 0.9% 10 ML Syringe FLUSH PRN (09:49)
[2017-11-13] MEDS ORDERED: Sodium Chloride 0.9% 2.5 ML Syringe FLUSH PRN (09:49)
--- NOTE | 2017-11-13 09:52 | EDM.PDOC ---
ED HPI GENERAL MEDICAL PROBLEM - General Chief Complaint: Respiratory Problem Stated Complaint: unk Time Seen by Provider: 11/13/17 09:49 Source of Information: Reports: Family History Limitations: Reports: No Limitations, Language Barrier, Physical Impairment - History of Present Illness INITIAL COMMENTS - FREE TEXT/NARRATIVE: History of present illness: []Patient resides at [place] and is on a thickened liquid diet however her son realized today that she's been receiving thin liquids having low oxygen levels. He is concerned that she may have an aspiration pneumonia. More agitated than normal and appears uncomfortable. Patient has a history of osteomyelitis in her right second toe with positive culture for MRSA. Patient's son states she frequently gets urinary tract infections and it appears similar to this. Patient just completed Levaquin and states that her assistant professor nurse education wants to switch her with a different antibiotic and rotate between the 2. Review of systems: As per history of present illness and below otherwise all systems reviewed and negative. Past medical history: As per history of present illness and as reviewed below otherwise noncontributory. Surgical history: As per history of present illness and as reviewed below otherwise noncontributory. Social history: No reported history of drug or alcohol abuse. Family history: As per history of present illness and as reviewed below otherwise noncontributory. Physical exam: General: Well developed, well nourished occasionally appears agitated and uncomfortable, no respiratory distress, O2 sats 96 on 2 L of oxygen HEENT: Atraumatic, normocephalic, pupils reactive, negative for conjunctival pallor or scleral icterus, mucous membranes moist, throat clear, neck supple, nontender, trachea midline. Lungs: Clear to auscultation, breath sounds equal bilaterally, chest nontender. No accessory muscle use Heart: S1S2, regular, negative for clicks, rubs, or JVD. Abdomen: Soft, nondistended, nontender without rebound or guarding. Negative for masses or hepatosplenomegaly. Pelvis: Stable nontender. Genitourinary: Deferred. Rectal: Deferred. Extremities: Right second toe erythematous, multiple contractures in extremities. Neurovascular unremarkable. Neuro: Awake, . Exam nonfocal. Diagnostics: []Chest x-ray unchanged no infiltrate or pneumonia seen, WBC is normal she has a mild left shift on her CBC, chemistry shows mildly low sodium at 128 last month her sodium is 130. Therapeutics: []2 mg of morphine given with improved vital signs and appears more comfortable Impression: []Agitation, Plan: []Morphine for pain, Cipro as directed follow-up with PMD Definitive disposition and diagnosis as appropriate pending reevaluation and review of above. - Related Data Allergies Allergy/AdvReac Type Severity Reaction Status Date / Time baclofen Allergy Other Verified 11/13/17 09:48 celecoxib [From Celebrex] Allergy Other Verified 11/13/17 09:48 propoxyphene Allergy Other Verified 11/13/17 09:48 sulfamethoxazole Allergy Other Verified 11/13/17 09:48 [From Septra] trimethoprim [From Septra] Allergy Other Verified 11/13/17 09:48 Home Meds: Home Meds Cholestyramine/Aspartame [Questran Light Powder] 4 gm PO DAILY 03/29/16 [History ] Cyanocobalamin (Vitamin B12) [Vitamin B12] 1,000 mcg PO DAILY 03/29/16 [History] Ibuprofen [Motrin] 200 mg PO BEDTIME 03/29/16 [History] Lisinopril 20 mg PO DAILY 03/29/16 [History] Loratadine 10 mg PO DAILY 03/29/16 [History] Multivitamin [Multivitamins] 1 tab PO DAILY 03/29/16 [History] amLODIPine Besylate [Norvasc] 2.5 mg PO DAILY 03/29/16 [History] Folic Acid 1 mg PO BEDTIME tablet 09/30/16 [Rx] Albuterol [IJD: Albuterol] 2.5 mg NEB Q6H PRN 11/27/16 [History] Levothyroxine [Synthroid] 100 mcg PO DAILY 11/27/16 [History] fentaNYL [Duragesic] 12 mcg TRDERM Q72H #10 patch 11/28/16 [Rx] traMADol [Ultram] 50 mg PO Q8H PRN #15 tablet 11/28/16 [Rx] Amino Ac/Protein Hydr/Whey Pro [Prosource Tf Liquid Packet] 1 oz PO DAILY [History] Mirtazapine [Remeron] 30 mg PO BEDTIME 09/24/17 [History] Modafinil 100 mg PO BID 09/24/17 [History] Prednisone [IJD: predniSONE] 15 mg PO DAILY 09/24/17 [History] Ciprofloxacin HCl 250 mg PO BID #20 tablet 11/13/17 [Rx] Morphine [Morphine 10 MG/5 ML] 2 mg PO TID PRN #10 cup 11/13/17 [Rx] Past Medical History HEENT History: Reports: Impaired Vision, Other (See Below) Other HEENT History: dysphagia, postnasal drip Cardiovascular History: Reports: Heart Murmur, High Cholesterol, Hypertension Other Cardiovascular History: raynauds, essential hypertension Respiratory History: Reports: COPD, Other (See Below) Other Respiratory History: dependence on supplemental oxygen Gastrointestinal History: Reports: GERD Genitourinary History: Reports: UTI, Recurrent [employer]PERATOR History: Reports: Musculoskeletal History: Reports: Arthritis, Fibromyalgia, Osteoarthritis, Other (See Below) Other Musculoskeletal History: polymyalgia rheumatica, muscle weakness Neurological History: Reports: Alzheimers Disease, MS, Seizure, Other (See Below ) Other Neuro History: malaise, dysarthria, anarthria Psychiatric History: Reports: Alzheimers Disease, Dementia, Depression, Other ( See Below) Other Psychiatric History: personality disorder Endocrine/Metabolic History: Reports: Hypothyroidism Hematologic History: Reports: Anemia Immunologic History: Reports: None Oncologic (Cancer) History: Reports: None Dermatologic History: Reports: Other (See Below) Other Dermatologic History: pressure ulcer to Right foot - Infectious Disease History Infectious Disease History: Reports: None - Past Surgical History Cardiovascular Surgical History: Reports: None Respiratory Surgical History: Reports: None Female Surgical History: Reports: None Oncologic Surgical History: Reports: None Social & Family History - Family History Family Medical History: Noncontributory - Caffeine Use Caffeine Use: Reports: None - Living Situation & Occupation Living situation: Reports: Extended Care Facility ED ROS GENERAL - Review of Systems Review Of Systems: ROS reveals no pertinent complaints other than HPI. ED EXAM, GENERAL - Physical Exam Exam: See Below (See history of present illness) Course - Vital Signs Last Recorded V/S: Last Vital Signs Temp 97.1 F 11/13/17 09:35 Pulse 91 11/13/17 10:15 Resp 14 11/13/17 10:15 BP 138/80 11/13/17 10:15 Pulse Ox 100 11/13/17 10:15 - Orders/Labs/Meds Orders: Active Orders 24 hr Category Date Time Status Sodium Chloride 0.9% [Normal Saline] 500 ml Med 11/13/17 10:15 Active IV .BOLUS Sodium Chloride 0.9% [Saline Flush] Med 11/13/17 09:49 Active 10 ml FLUSH ASDIRECTED PRN Sodium Chloride 0.9% [Saline Flush] Med 11/13/17 09:49 Active 2.5 ml FLUSH ASDIRECTED PRN Saline Lock Insert [OM.PC] Stat Oth 11/13/17 09:49 Ordered Medication Orders Sodium Chloride (Normal Saline) 500 mls @ 999 mls/hr IV .BOLUS WILBUR Last Admin: 11/13/17 10:05 Dose: 999 mls/hr Sodium Chloride (Saline Flush) 10 ml FLUSH ASDIRECTED PRN PRN Reason: Keep Vein Open Sodium Chloride (Saline Flush) 2.5 ml FLUSH ASDIRECTED PRN PRN Reason: Keep Vein Open Labs: Laboratory Tests 11/13/17 11/13/17 Range/Units 09:43 09:43 WBC 10.36 (4.0-11.0) K/uL RBC 4.15 L (4.30-5.90) M/uL Hgb 12.5 (12.0-16.0) g/dL Hct 36.7 (36.0-46.0) % MCV 88.4 (80.0-98.0) fL MCH 30.1 (27.0-32.0) pg MCHC 34.1 (31.0-37.0) g/dL RDW Std Deviation 45.5 (28.0-62.0) fl RDW Coeff of Maricel 14 (11.0-15.0) % Plt Count 267 (150-400) K/uL MPV 9.10 (7.40-12.00) fL Neut % (Auto) 91.2 H (48.0-80.0) % Lymph % (Auto) 5.1 L (16.0-40.0) % [place] % (Auto) 3.3 (0.0-15.0) % Eos % (Auto) 0.2 (0.0-7.0) % Baso % (Auto) 0.2 (0.0-1.5) % Neut # (Auto) 9.5 H (1.4-5.7) K/uL Lymph # (Auto) 0.5 L (0.6-2.4) K/uL [place] # (Auto) 0.3 (0.0-0.8) K/uL Eos # (Auto) 0.0 (0.0-0.7) K/uL Baso # (Auto) 0.0 (0.0-0.1) K/uL Nucleated RBC % 0.0 /100WBC Nucleated RBCs # 0 K/uL Sodium 128 L (136-145) mmol/L Potassium 3.5 (3.5-5.1) mmol/L Chloride 92 L (98-107) mmol/L Carbon Dioxide 24.6 (21.0-32.0) mmol/L BUN 4 L (7.0-18.0) mg/dL Creatinine 0.9 (0.6-1.0) mg/dL Est Cr Clr Drug Dosing 38.12 mL/min Estimated GFR (MDRD) 59.9 ml/min Glucose 198 H (74-106) mg/dL Calcium 8.8 (8.5-10.1) mg/dL Total Bilirubin 0.4 (0.2-1.0) mg/dL AST 17 (15-37) IU/L ALT 32 (14-63) IU/L Alkaline Phosphatase 88 (46-116) U/L Total Protein 6.3 L (6.4-8.2) g/dL Albumin 3.2 L (3.4-5.0) g/dL Globulin 3.1 (2.0-3.5) g/dL Albumin/Globulin Ratio 1.0 L (1.3-2.8) Meds: Medications Generic Name Dose Route Start Last Admin Trade Name Freq PRN Reason Stop Dose Admin Sodium Chloride 500 mls @ 999 mls/hr 11/13/17 10:15 11/13/17 10:05 Normal Saline IV 999 mls/hr .BOLUS WILBUR Administration Sodium Chloride 10 ml 11/13/17 09:49 Saline Flush FLUSH ASDIRECTED PRN Keep Vein Open Sodium Chloride 2.5 ml 11/13/17 09:49 Saline Flush FLUSH ASDIRECTED PRN Keep Vein Open Discontinued Medications Generic Name Dose Route Start Last Admin Trade Name Freq PRN Reason Stop Dose Admin Morphine Sulfate 2 mg 11/13/17 10:03 11/13/17 10:13 Morphine IVPUSH 11/13/17 10:04 2 mg ONETIME ONE Administration Ondansetron HCl 4 mg 11/13/17 10:02 11/13/17 10:13 Zofran IVPUSH 11/13/17 10:03 4 mg ONETIME ONE Administration Departure - Departure Time of Disposition: 10:49 Disposition: Home, Self-Care 01 Condition: Good Clinical Impression: Agitation Clinical Impression: (Ruled Out): Unusual change in behavior - Discharge Information *PRESCRIPTION DRUG MONITORING PROGRAM REVIEWED*: Not Applicable *COPY OF PRESCRIPTION DRUG MONITORING REPORT IN PATIENT KATERIN: Not Applicable Prescriptions: Ciprofloxacin HCl 250 mg PO BID #20 tablet Morphine [Morphine 10 MG/5 ML] 2 mg PO TID PRN #10 cup PRN Reason: Pain Instructions: Medical Screening Exam Referrals: PCP,Unknown [Primary Care Provider] - Forms: ED Department Discharge Additional Instructions: The following information is given to patients seen in the emergency department who are being discharged to home. This information is to outline your options for follow-up care. We provide all patients seen in our emergency department with a follow-up referral. The need for follow-up, as well as the timing and circumstances, are variable depending upon the specifics of your emergency department visit. If you don't have a primary care physician on staff, we will provide you with a referral. We always advise you to contact your personal physician following an emergency department visit to inform them of the circumstance of the visit and for follow-up with them and/or the need for any referrals to a consulting specialist. The emergency department will also refer you to a specialist when appropriate. This referral assures that you have the opportunity for follow-up care with a specialist. All of these measure are taken in an effort to provide you with optimal care, which includes your follow-up. Under all circumstances we always encourage you to contact your private physician who remains a resource for coordinating your care. When calling for follow-up care, please make the office aware that this follow-up is from your recent emergency room visit. If for any reason you are refused follow-up, please contact the [facility] Emergency Department at and asked to speak to the emergency department charge nurse. Cipro as directed, morphine for breakthrough pain as directed. Follow-up with Dr. Martinez, return if symptoms worsen or change - My Orders Last 24 Hours: My Active Orders 11/13/17 09:49 Sodium Chloride 0.9% [Saline Flush] 10 ml FLUSH ASDIRECTED PRN Sodium Chloride 0.9% [Saline Flush] 2.5 ml FLUSH ASDIRECTED PRN Saline Lock Insert [OM.PC] Stat 11/13/17 10:15 Sodium Chloride 0.9% [Normal Saline] 500 ml IV .BOLUS - Assessment/Plan Last 24 Hours: My Active Orders 11/13/17 09:49 Sodium Chloride 0.9% [Saline Flush] 10 ml FLUSH ASDIRECTED PRN Sodium Chloride 0.9% [Saline Flush] 2.5 ml FLUSH ASDIRECTED PRN Saline Lock Insert [OM.PC] Stat 11/13/17 10:15 Sodium Chloride 0.9% [Normal Saline] 500 ml IV .BOLUS
[2017-11-13] MEDS ORDERED: Ondansetron 4 MG/2 ML SDV IVPUSH ONE (10:02)
[2017-11-13] MEDS ORDERED: Morphine 2 MG/ML Syringe IVPUSH ONE (10:03)
[2017-11-13] MEDS ORDERED: Sodium Chloride 0.9% 500 ML IV SCH (10:15)
--- NOTE | 2017-11-13 10:20 | CR ---
EXAMINATION: Portable chest radiograph. HISTORY: Cough. Comparison: 09/24/2017 FINDINGS: The trachea is midline. The cardiomediastinal silhouette is grossly stable a right hilar prominence. Accentuated by positioning and kyphosis. No pulmonary infiltrates, effusions or pneumothorax. Osseous structures appear osteopenic. IMPRESSION: 1. Grossly unchanged chest radiograph. However evaluation is limited secondary to positioning kyphosi s.
[2017-11-13 10:34] VITALS: BP 138/80
== END 2017-11-13 11:23 | disposition home or self-care (01) ==
LOC: MW.ED 09:27
DX: R45.1 Restlessness and agitation (principal); I10 Essential (primary) hypertension; E78.00 Pure hypercholesterolemia, unspecified; J44.9 Chronic obstructive pulmonary disease, unspecified; K21.9 Gastro-esophageal reflux disease without esophagitis; E03.9 Hypothyroidism, unspecified; M19.90 Unspecified osteoarthritis, unspecified site; D64.9 Anemia, unspecified; G30.9 Alzheimer's disease, unspecified; F02.80 Dementia in other diseases classified elsewhere, unspecified severity, without behavioral disturbance, psychotic disturbance, mood disturbance, and anxiety; Z88.1 Allergy status to other antibiotic agents; Z88.2 Allergy status to sulfonamides; Z88.8 Allergy status to other drugs, medicaments and biological substances; Z79.899 Other long term (current) drug therapy
CPT/HCPCS: 36415; 71045; 80053; 85025; 96361; 96374; 96375; 99284; J2270; J2405; J7040; 99283